=== PATIENT | female | born 1945 | race Caucasian/White ===

== ENCOUNTER → 2016-12-31 | Outpatient (CLI) | payer MEDICARE, OTHER ==
--- NOTE | 2017-01-02 13:06 | MM ---
Reason for exam: screening (asymptomatic). Last mammogram was performed 1 year and 1 month ago. History: Patient is postmenopausal and history of other cancer. Family history of breast cancer in maternal aunt at age 83 and breast cancer in paternal aunt at age 70. Benign US RT VAD breast biopsy of the right breast, November 13, 2012. Excisional biopsy of the left breast. 2 excisional biopsies of the right breast. Took estrogen for 8 years. Physical Findings: A clinical breast exam by your physician is recommended on an annual basis and results should be correlated with mammographic findings. MG 3D Screening Mammo W/Cad Bilateral CC and MLO view(s) were taken. Prior study comparison: December 08, 2015, bilateral MG 3d screening mammo w/cad. August 29, 2014, bilateral MG diagnostic mammo w CAD FILIPPO. The breast tissue is heterogeneously dense. This may lower the sensitivity of mammography. Previous mammotome biopsy in the right breast. No significant changes when compared with prior studies. ASSESSMENT: Benign, BI-RAD 2 RECOMMENDATION: Routine screening mammogram of both breasts in 1 year.
== END | disposition home or self-care (01) ==
LOC: RADMAMWWP 10:47
PROVIDERS: ATTEND Internal Medicine
DX: Z12.31 Encounter for screening mammogram for malignant neoplasm of breast (principal)
CPT/HCPCS: 77063; G0202

== ENCOUNTER 2017-10-26 19:45 | Emergency (ER) | payer MEDICARE, OTHER ==
--- NOTE | 2017-10-26 20:11 | ED ---
General Adult HPI - General Chief complaint: Extremity Problem,Nontraumatic Stated complaint: Leg Pain Time Seen by Provider: 10/26/17 20:02 Source: patient, RN notes reviewed Mode of arrival: ambulatory Limitations: no limitations - History of Present Illness Initial comments: 72-year-old female presents for a bruise to the left leg. Patient states that this developed on Friday. She states she's been having some pain and cramping like to the left leg when she wakes up. She states there is no falls traumas or injuries. She denies any use of blood thinners. She states that she does have some pain to the knee but that has just been this cramping pain. She was concerned due to the continued discomfort so she thought that she should be seen. Patient denies any recent fever, chills, shortness of breath, chest pain, back pain, abdominal pain, nausea vomiting, numbness or tingling, dysuria or hematuria, constipation or diarrhea, headaches or visual changes, or any other current symptoms. - Related Data Home Medications Medication Instructions Recorded Confirmed Allopurinol [Zyloprim] 100 mg PO HS 03/15/16 10/26/17 Aspirin [Adult Low Dose Aspirin EC] 81 mg PO HS 03/15/16 10/26/17 Atorvastatin [Lipitor] 40 mg PO HS 03/15/16 10/26/17 Canagliflozin [Invokana] 100 mg PO DAILY 03/15/16 10/26/17 Celecoxib [CeleBREX] 200 mg PO Q48H 03/15/16 10/26/17 Insulin Glargine,Hum.rec.anlog 24 units SQ HS 03/15/16 10/26/17 [Toujeo Solostar] Levothyroxine Sodium [Synthroid] 125 mcg PO MOTUWETHFRSA 03/15/16 10/26/17 Metoprolol Succinate [Toprol XL] 50 mg PO HS 03/15/16 10/26/17 PARoxetine HCL [Paxil] 20 mg PO DAILY 03/15/16 10/26/17 amLODIPine BESYLATE [Norvasc] 5 mg PO HS 03/15/16 10/26/17 metFORMIN HCL 1,000 mg PO AC-LUNCH 03/15/16 10/26/17 metFORMIN HCL 1,000 mg PO AC-SUPPER 03/15/16 10/26/17 Ferrous Sulfate [Feosol] 325 mg PO DAILY 10/26/17 10/26/17 Levothyroxine Sodium [Synthroid] 62.5 mcg PO CHÁVEZ 10/26/17 10/26/17 Losartan Potassium [Cozaar] 100 mg PO DAILY 10/26/17 10/26/17 Allergies Allergy/AdvReac Type Severity Reaction Status Date / Time codeine AdvReac Nausea Verified 10/26/17 20:17 Review of Systems ROS Statement: Those systems with pertinent positive or pertinent negative responses have been documented in the HPI. ROS Other: All systems not noted in ROS Statement are negative. Past Medical History Past Medical History: Asthma, Chest Pain / Angina, Diabetes Mellitus, GERD/ Reflux, Hyperlipidemia, Hypertension, Osteoarthritis (OA), Thyroid Disorder Additional Past Medical History / Comment(s): slight heart murmer, hx graves disease, hx thyroid cancer, hx skin cancer History of Any Multi-Drug Resistant Organisms: None Reported Past Surgical History: Appendectomy, Bladder Surgery, Breast Surgery, Section, Cholecystectomy, Joint Replacement Additional Past Surgical History / Comment(s): thyroidectomy, susie lumpectomy (rt -4,left-1), rt cataract. right knee replacement. Past Anesthesia/Blood Transfusion Reactions: Blood Transfusion Reaction Additional Past Anesthesia/Blood Transfusion Reaction / Comment(s): blood transfusion-got "Jumpy" and jaundice-1971, Past Psychological History: No Psychological Hx Reported Smoking Status: Former smoker - Past Family History Sister(s) Family Medical History: Pulmonary Embolus General Exam - General Exam Comments Initial Comments: General: The patient is awake and alert, in no distress, and does not appear acutely ill. Neck: The neck is supple, there is no tenderness. Cardiovascular: There is a regular rate and rhythm. No murmur, rub or gallop is appreciated. Respiratory: Lungs are clear to auscultation, respirations are non-labored, breath sounds are equal. No wheezes, stridor, rales, or rhonchi. Musculoskeletal: Sensation intact with 2+ pulses throughout the left flexion. Full range of motion of left knee and left ankle. Patient does appear to have ecchymosis to the medial aspect of the left knee and distal upper leg. There is tenderness along the medial palpation of the leg. No calf tenderness. Neurological: CN II-XII intact, There are no obvious motor or sensory deficits. Coordination appears grossly intact. Speech is normal. Skin: Skin is warm and dry and no rashes or lesions are noted. Psychiatric: Normal mood and affect. Limitations: no limitations Course Vital Signs 10/26/17 19:52 Temperature 97.4 F L Pulse Rate 64 Respiratory 16 Rate Blood Pressure 192/88 O2 Sat by Pulse 96 Oximetry Procedures - Orthopedic Splinting/Casting Injury #1 Side: left Lower Extremity Injury Location: knee Lower Extremity Immobilizer: Flavio wrap Medical Decision Making - Medical Decision Making 72-year-old female presents for left leg pain and bruising. At this time the patient's ultrasound and x-rays have been reviewed. At this time we discussed it appears that the patient most likely has a hematoma. There is no warmth is no red there is no gas in just appears to be complex fluid. This time there is no suspicion for infection there is no fever. At this time we did discuss that we will Flavio bandage the area we discussed usp for the area we discussed close follow-up and return parameters all questions. Patient stated that she understood and she is agreement this plan. All questions have she will be discharged. - Radiology Data Radiology results: report reviewed, image reviewed Disposition Clinical Impression: Hematoma of left lower extremity Disposition: HOME SELF-CARE Condition: Stable Instructions: Hematoma (ED) Additional Instructions: Please use medication as discussed. Please follow up with family doctor if symptoms have not improved over the next two days. Please return to the emergency room if your symptoms increase or worsen or for any other concerns. Referrals: Anshul Montanez MD [Primary Care Provider] - 1-2 days Time of Disposition: 22:16
--- NOTE | 2017-10-26 20:53 | XR ---
EXAMINATION TYPE: XR knee complete LT DATE OF EXAM: 10/26/2017 COMPARISON: NONE HISTORY: Pain and bruising TECHNIQUE: 3 views FINDINGS: I see no fracture nor dislocation. There is narrowing of the medial joint space with spurri ng of the femoral and tibial condyles. There is no sign of joint effusion. IMPRESSION: Osteoarthritis. No fracture.
--- NOTE | 2017-10-26 22:05 | US ---
EXAMINATION TYPE: US venous doppler duplex LE LT DATE OF EXAM: 10/26/2017 8:09 PM COMPARISON: NONE CLINICAL HISTORY: Pain in left thigh intermittent times 3 months. But had an episode of worse pain an d bruising of mid to low thigh wrapping to posterior knee. No known injury, negative PMHX of DVT. SIDE PERFORMED: Left TECHNIQUE: The lower extremity deep venous system is examined utilizing real time linear array sonog kishore with graded compression, doppler sonography and color-flow sonography. VESSELS IMAGED: External Iliac Vein (EIV) Common Femoral Vein Deep Femoral Vein Greater Saphenous Vein * Femoral Vein Popliteal Vein Small Saphenous Vein * Proximal Calf Veins (* superficial vessels) Left Leg: Negative for DVT Incidental hypoechoic complex area superior to FV mid that does not appear to have any internal flow; likely hematoma versus other etiology. IMPRESSION: No evidence of deep venous thrombosis in the left leg. There is a 6 x 1.4 cm complex area in the left upper thigh that appears to be complex fluid of uncertain significance and origin.
[2017-10-26 22:18] VITALS: BP 144/67; PULSE 77; RESP 18; TEMP 97
== END 2017-10-26 22:20 | disposition home or self-care (01) ==
LOC: EC 19:45
DX: R29.898 Other symptoms and signs involving the musculoskeletal system (principal); E11.9 Type 2 diabetes mellitus without complications; E78.5 Hyperlipidemia, unspecified; I10 Essential (primary) hypertension; E07.9 Disorder of thyroid, unspecified; Z85.850 Personal history of malignant neoplasm of thyroid; Z87.891 Personal history of nicotine dependence; Z79.4 Long term (current) use of insulin; Z79.82 Long term (current) use of aspirin; Z79.899 Other long term (current) drug therapy; Z88.5 Allergy status to narcotic agent
CPT/HCPCS: 99284

== ENCOUNTER → 2017-12-19 | Outpatient (CLI) | payer MEDICARE, OTHER ==
--- NOTE | 2017-12-20 12:01 | CT ---
EXAMINATION TYPE: CT abdomen pelvis wo con DATE OF EXAM: 12/19/2017 COMPARISON: NONE HISTORY: Hematuria x 2 weeks. Right flank pain. CT DLP: 1013 mGycm Automated exposure control for dose reduction was used. TECHNIQUE: Helical acquisition of images from the lung bases through the pelvis. FINDINGS: The heart is enlarged. Lack of contrast could compromise sensitivity. LUNG BASES: No significant abnormality is appreciated. AORTA: Atheromatous change present within the aorta, there is no evident aneurysm LIVER/GB: Patient is post cholecystectomy, liver unremarkable as seen. PANCREAS: No significant abnormality is seen. SPLEEN: No significant abnormality is seen. ADRENALS: No significant abnormality is seen. KIDNEYS: 15 mm low dense focus at the lower pole of the right kidney shows Hounsfield units compatibl e with cyst. Low dense focus of the midpole of the left kidney is not well-defined and measures appro ximately 7 to 8 mm and also shows low attenuation, similar focus in the medial aspect of the lower po le of the right kidney measures 9 mm. There is no hydronephrosis or renal calculus bilaterally, no ur eteral calculus. Small exophytic 8 mm indeterminate focus is present in the anterior aspect of the up per pole of the left kidney. REPRODUCTIVE ORGANS: Ovarian tissue unremarkable, uterus is absent URINARY BLADDER: Some mild thickening of the urinary bladder wall could be due to lack of distention , correlate to exclude cystitis BOWEL: Diverticular change noted especially in the sigmoid colon, no evident bowel obstruction FREE AIR: No Free Air is visible. ASCITES: None visible. PELVIC ADENOPATHY: None visualized. RETROPERITONEAL ADENOPATHY: No Retroperitoneal Adenopathy visible. OSSEOUS STRUCTURES: There is a mild spinal curvature, degenerative disc changes are noted in the vis ualized spine. Vacuum phenomenon present at multiple intervertebral levels, there is loss of disc he ight, mild anterior wedging present at T12. Posterior disc herniation present at L5-S1, there is gas density within the spinal canal, there is multilevel facet arthropathy. IMPRESSION: NONCONTRAST EXAM. PROBABLE CYSTS ASSOCIATED WITH THE KIDNEYS, CONSIDER ULTRASOUND CORRELATION, FOLLOW -UP TO ASSESS FOR STABILITY. DIVERTICULOSIS. POSTOP CHANGES. CORRELATE TO EXCLUDE CYSTITIS. DISC KALPESH IATION, DEGENERATIVE DISC DISEASE AND SCOLIOSIS. ADDITIONAL FINDINGS ABOVE.
== END | disposition home or self-care (01) ==
LOC: RADCTMAIN 18:27
PROVIDERS: ATTEND Internal Medicine
DX: N28.1 Cyst of kidney, acquired (principal); K57.90 Diverticulosis of intestine, part unspecified, without perforation or abscess without bleeding; Z98.890 Other specified postprocedural states
CPT/HCPCS: 74176

== ENCOUNTER → 2017-12-30 | Outpatient (CLI) | payer MEDICARE, OTHER ==
--- NOTE | 2017-12-30 14:58 | US ---
EXAMINATION TYPE: US kidneys/renal and bladder DATE OF EXAM: 12/30/2017 COMPARISON: April 29, 2011 CLINICAL HISTORY: Acquired renal cyst N28.1`. Renal cysts per CT. Patient states she had pain, but n ot any more. EXAM MEASUREMENTS: Right Kidney: 9.8 x 4.4 x 4.4 cm cm Left Kidney: 10.1 x 4.8 x 5.7 cm Right Kidney: Lower pole cystic appearing lesion - 1.3 x 1.3 x 1.2 cm Left Kidney: Anterior mid pole cystic appearing lesion - 0.8 x 0.5 x 0.6 cm Bladder: distended, wnl Bilateral Jets seen There is no evidence for hydronephrosis at this point in time. No nephrolithiasis is seen. No maureen s are identified. The urinary bladder is anechoic. Bilateral ureteral jets are seen. IMPRESSION: Solid 1. Bilateral simple appearing renal cysts.
== END | disposition home or self-care (01) ==
LOC: RADUSWWP 13:30
PROVIDERS: ATTEND Internal Medicine
DX: N28.1 Cyst of kidney, acquired (principal)
CPT/HCPCS: 76770

== ENCOUNTER → 2018-02-16 | Outpatient (CLI) | payer MEDICARE, OTHER ==
--- NOTE | 2018-02-17 10:12 | MM ---
Reason for exam: screening (asymptomatic). Last mammogram was performed 1 year and 2 months ago. History: Patient is postmenopausal and history of other cancer. Family history of breast cancer in maternal aunt at age 83 and breast cancer in paternal aunt at age 70. Benign US RT VAD breast biopsy of the right breast, November 13, 2012. Excisional biopsy of the left breast. 2 excisional biopsies of the right breast. Took estrogen for 8 years. Physical Findings: A clinical breast exam by your physician is recommended on an annual basis and results should be correlated with mammographic findings. MG 3D Screening Mammo W/Cad Bilateral CC and MLO view(s) were taken. Prior study comparison: December 31, 2016, bilateral MG 3d screening mammo w/cad. December 08, 2015, bilateral MG 3d screening mammo w/cad. The breast tissue is heterogeneously dense. This may lower the sensitivity of mammography. Benign appearing bilateral calcifications. Previous mammotome biopsy in the right breast. There is chronic nodularity bilaterally. No significant changes when compared with prior studies. ASSESSMENT: Benign, BI-RAD 2 RECOMMENDATION: Routine screening mammogram of both breasts in 1 year.
--- NOTE | 2018-02-18 13:12 | BD ---
EXAMINATION TYPE: Axial Bone Density DATE OF EXAM: 02/16/2018 COMPARISON: 2016 CLINICAL HISTORY: known osteoporosis Height: 59 Weight: 183.7 FRAX RISK QUESTIONS: History of Fracture in Adulthood: left shoulder fx RISK FACTORS HISTORY OF: Active: yes Diet low in dairy products/other sources of calcium: no Postmenopausal woman: yes MEDICATIONS: Thyroid Medications: Which medication: Levothyroxine How Lon Additional Medications: htn, arthritis, cholesterol, diabetes/insulin and metformin, pain Additional History: thyroid cancer in 1987 with radiation EXAM MEASUREMENTS: Bone mineral densitometry was performed using the Zuli System. Bone mineral density as measured about the Lumbar spine is: ----- L1-L4(G/cm2): 1.382 T Score Values are as follows: ----- L2: 0.3 ----- L3: 1.5 ----- L4: 3.1 ----- L1-L4: 1.7 Bone mineral density has: Decreased -5.3% since study of: 12-08-2015 Bone mineral density about the R hip (g/cm2): 0.949 Bone mineral density about the L hip (g/cm2): 0.960 T Score values are as follows: -----R Neck: -0.6 -----L Neck: -0.6 -----R Total: -0.2 -----L Total: 0.2 Bone mineral density has: Decreased -2.0% since study of: 12-08-2015 IMPRESSION: Normal (Values between +1 and -1 indicate normal bone mass). Consider repeating this study in 5 year s or sooner if there is some new clinical indication. NOTE: T-SCORE=SD OF THE YOUNG ADULT MEAN.
== END | disposition home or self-care (01) ==
LOC: RADMAMWWP 11:15
PROVIDERS: ATTEND Internal Medicine
DX: Z12.31 Encounter for screening mammogram for malignant neoplasm of breast (principal); M81.0 Age-related osteoporosis without current pathological fracture
CPT/HCPCS: 77063; 77067; 77080

== ENCOUNTER → 2019-04-08 | Outpatient (CLI) | payer MEDICARE ==
--- NOTE | 2019-04-09 07:19 | US ---
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 No hx of tia, HTN EXAM MEASUREMENTS: RIGHT: Peak Systolic Velocity (PSV) cm/sec ----- Right CCA: 48.2 ----- Right ICA: 91.5 ----- Right ECA: 94.1 ICA/CCA ratio: 1.9 RIGHT: End Diastole cm/sec ----- Right CCA: 9.7 ----- Right ICA: 17.6 ----- Right ECA: 8.6 LEFT: Peak Systolic Velocity (PSV) cm/sec ----- Left CCA: 48.8 ----- Left ICA: 77.0 ----- Left ECA: 90.6 ICA/CCA ratio: 1.6 LEFT: End Diastole cm/sec ----- Left CCA: 8.6 ----- Left ICA: 18.6 ----- Left ECA: 3.8 VERTEBRALS (direction of flow): Right Vertebral: Antegrade Left Vertebral: Antegrade Rhythm: Arrhythmia Suboptimal exam due to arrhythmia and carotid pulsatility Bilateral wall thickening. No significant stenosis. Plaque seen in bilateral bulbs and right anteri or CCA. IMPRESSION: 1. Mild degree of grayscale atheromatous plaquing with no sonographically evident hemodynamically sig nificant stenosis within either visualized carotid arterial system. 2. Cardiac arrhythmia. Correlate with EKG. Criteria for Assigning % of Stenosis / Diameter reduction (Estimation based on the indirect measurements of the internal carotid artery velocities (ICA PSV). 1. Normal (no stenosis)=ICA PSV < 125 cm/s: ratio < 2.0: ICA EDV<40 cm/s. 2. Less than 50% stenosis=ICA PSV < 125 cm/s: ratio < 2.0: ICA EDV<40 cm/s. 3. 50 to 69% stenosis=ICA PSV of 125 to 230 cm/s: ration 2.0 ? 4.0: ICA EDV 40-100 cm/s. 4. Greater than 70% stenosis to near occlusion= ICA PSV > 230 cm/s: ratio > 4.0: ICA EDV > 100 cm/s. 5. Near occlusion= ICA PSV velocities may be low or undetectable: variable ratio and ICA EDV. 6. Total occlusion=unable to detect flow.
--- NOTE | 2019-04-09 10:54 | ECHOF ---
Referral Reason:I34.0 Nonrheumatic mitral (valve) insufficiency MEASUREMENTS -------- HEIGHT: 152.4 cm WEIGHT: 81.6 kg BP: RVIDd: 2.6 cm (< 3.3) IVSd: 1.3 cm (0.6 - 1.1) LVIDd: 4.0 cm (3.9 - 5.3) LVPWd: 1.4 cm (0.6 - 1.1) IVSs: 1.7 cm LVIDs: 2.5 cm LVPWs: 1.4 cm LA Diam: 3.7 cm (2.7 - 3.8) Ao Diam: 2.5 cm (2.0 - 3.7) AV Cusp: 1.7 cm (1.5 - 2.6) LA Diam: 3.8 cm (2.7 - 3.8) MV EXCURSION: 17.354 mm (> 18.000) MV EF SLOPE: 57 mm/s (70 - 150) EPSS: 0.5 cm MV E Tomas: 0.53 m/s MV DecT: 321 ms MV A Tomas: 0.94 m/s MV E/A Ratio: 0.57 RAP: 5.00 mmHg RVSP: 12.26 mmHg FINDINGS -------- Sinus rhythm. This was a technically adequate study. The left ventricular size is normal. There is mild concentric left ventricular hypertrophy. Overa ll left ventricular systolic function is normal with, an EF between 55 - 60 %. The right ventricle is normal in size. The left atrial size is normal. The right atrial size is normal. The aortic valve is trileaflet, and appears structurally normal. No aortic stenosis or regurgitation. Mild mitral regurgitation is present. Mild tricuspid regurgitation present. There is no evidence of pulmonary hypertension. The right v entricular systolic pressure, as measured by Doppler, is 12.26mmHg. There is no pulmonic regurgitation present. The aortic root size is normal. Echo free space represents a pericardial fat pad. CONCLUSIONS -------- 1. The left ventricular size is normal. 2. There is mild concentric left ventricular hypertrophy. 3. Overall left ventricular systolic function is normal with, an EF between 55 - 60 %. 4. The right ventricle is normal in size. 5. The left atrial size is normal. 6. The right atrial size is normal. 7. The aortic valve is trileaflet, and appears structurally normal. No aortic stenosis or regurgitati on. 8. Mild mitral regurgitation is present. 9. Mild tricuspid regurgitation present. 10. There is no evidence of pulmonary hypertension. 11. The right ventricular systolic pressure, as measured by Doppler, is 12.26mmHg. 12. There is no pulmonic regurgitation present. 13. The aortic root size is normal. 14. Echo free space represents a pericardial fat pad. [employer]HEL WORKER: Ramila Acevedo RDCS
== END | disposition home or self-care (01) ==
LOC: RADECHMAIN 14:41
PROVIDERS: ATTEND Internal Medicine
DX: I65.23 Occlusion and stenosis of bilateral carotid arteries (principal); I08.1 Rheumatic disorders of both mitral and tricuspid valves; I77.89 Other specified disorders of arteries and arterioles
CPT/HCPCS: 93306; 93880

== ENCOUNTER → 2019-04-13 | Outpatient (CLI) | payer MEDICARE, OTHER ==
--- NOTE | 2019-04-14 11:50 | MM ---
Reason for exam: screening (asymptomatic). Last mammogram was performed 1 year and 2 months ago. History: Patient is postmenopausal and history of other cancer. Family history of breast cancer in maternal aunt at age 83 and breast cancer in paternal aunt at age 70. Benign US RT VAD breast biopsy of the right breast, November 13, 2012. Excisional biopsy of the left breast. 2 excisional biopsies of the right breast. Took estrogen for 8 years. Physical Findings: A clinical breast exam by your physician is recommended on an annual basis and results should be correlated with mammographic findings. MG 3D Screening Mammo W/Cad Bilateral CC and MLO view(s) were taken. Prior study comparison: February 16, 2018, bilateral MG 3d screening mammo w/cad. December 31, 2016, bilateral MG 3d screening mammo w/cad. The breast tissue is heterogeneously dense. This may lower the sensitivity of mammography. There are benign appearing stable right upper outer quadrant and right lower inner quadrant masses at middle depth as well as stable two left upper outer quadrant masses at anterior and middle depth all back to 2013. Benign appearing bilateral calcifications. No suspicious abnormality. Right biopsy marker noted. No significant changes when compared with prior studies. ASSESSMENT: Benign, BI-RAD 2 RECOMMENDATION: Routine screening mammogram of both breasts in 1 year.
== END | disposition home or self-care (01) ==
LOC: RADMAMWWP 09:56
PROVIDERS: ATTEND Internal Medicine
DX: Z12.31 Encounter for screening mammogram for malignant neoplasm of breast (principal)
CPT/HCPCS: 77063; 77067

== ENCOUNTER → 2019-09-09 | Outpatient (CLI) | payer MEDICARE ==
--- NOTE | 2019-09-09 12:58 | XR ---
EXAMINATION TYPE: XR lumbosacral spine min 4V DATE OF EXAM: 09/09/2019 CLINICAL HISTORY: M 47.897 TECHNIQUE: Frontal, lateral, and oblique images of the lumbar spine are obtained. COMPARISON: 07/16/2013 lumbar spine x-ray and CT abdomen pelvis dated 12/19/2017. FINDINGS: There are 5 lumbar type vertebral bodies identified. The lumbar spine shows satisfactory alignment without evidence of acute fracture or dislocation. However there is a compression deformity of the T12 vertebral body with height loss of approximately 50%. Multilevel facet arthropathy, inter vertebral disc space narrowing, and anterior osteophytes are seen in the lumbar spine. Extensive athe rosclerosis of the abdominal aorta and its branches. Single surgical clip in the right upper quadrant . S-shaped scoliosis of the thoracic lumbar spine is partially visualized. IMPRESSION: 1. T12 compression deformity is new from the prior of 07/16/2013 but seen on the CT of 12/19/2017. 2. No acute fracture or malalignment of the lumbar spine. 3. Partially visualized S-shaped scoliosis of the thoracolumbar spine. 4. Moderate degenerative disc disease of the lumbar spine.
== END | disposition home or self-care (01) ==
LOC: LABWHC1 11:43
PROVIDERS: ATTEND Internal Medicine
DX: M51.36 Other intervertebral disc degeneration, lumbar region (principal); M41.87 Other forms of scoliosis, lumbosacral region
CPT/HCPCS: 72110

== ENCOUNTER → 2019-09-15 | Outpatient (CLI) | payer MEDICARE ==
--- NOTE | 2019-09-15 22:31 | MR ---
EXAMINATION TYPE: MR lumbar spine wo con DATE OF EXAM: 09/15/2019 COMPARISON: NONE HISTORY: Lower back pain for years. No known injury or surgeries. TECHNIQUE: T1 and T2 axial and sagittal images of the lumbar spine are submitted. FINDINGS: There is no abnormal signal seen within the visualized spinal cord or paraspinal soft tissu es. There is atrophy of the paraspinal musculature. Aorta of normal caliber. Benign-appearing renal c ysts noted. Scoliosis noted. At T12-L1 there is loss of height at the superior endplate compatible with a chronic compression defo rmity. Moderate degenerative disc disease with facet arthropathy. There is diffuse disc bulging but n o canal stenosis. Bulging slightly greater paracentrally and laterally to left with mild bilateral fo raminal encroachment. At L1-2 there is degenerative disc disease with diffuse disc bulging and facet arthropathy. Marked ch anges are seen in the left resulting in moderate left-sided foraminal enlargement. Mild right-sided f oraminal encroachment. At L2-3 there is moderate degenerative disc disease with advanced facet arthropathy and ligamentum fl avum. Diffuse disc bulging results in moderate to severe canal stenosis and bilateral foraminal encro achment. At L3-4 there is degenerative disc disease with broad-based disc bulging or protrusion. Marked facet arthropathy and ligamentum flavum hypertrophy contribute to moderate to severe canal stenosis and susie ateral foraminal encroachment. At L4-5 there is severe degenerative disc disease with advanced facet arthropathy and ligamentum flav um hypertrophy. Broad-based disc bulging results in moderate canal stenosis and left foraminal encroa chment. Severe right-sided foraminal encroachment greater secondary to greater disc bulging paracentr ally and laterally to the right. Mass effect upon the right nerve root suspected correlate for radicu lopathy. At L5-S1 there is severe degenerative disc disease with a focal central and left paracentral disc her niation fusion of the disc posterior to the upper margin of the S1 level. There is compression of the thecal sac and left exiting nerve root. Facet arthropathy noted. IMPRESSION: 1. Scoliosis with multilevel moderate to severe degenerative disc disease. 2. Focal central and left paracentral disc herniation L5-S1 with extrusion. Disc material extends ankita ng the posterior margin of the upper S1 level. There is compression of the thecal sac and suspicion o f mass effect upon the exiting left nerve root. 3. Diffuse disc bulging or protrusions L2-3, L3-4 and L4-5 with significant foraminal encroachment an d significant canal stenosis as discussed above. 4. Disc bulging T12-L1 and L1-L2 resulting in foraminal encroachment as discussed above.
== END | disposition home or self-care (01) ==
LOC: RADMRIMAIN 17:44
PROVIDERS: ATTEND Internal Medicine
DX: M48.061 Spinal stenosis, lumbar region without neurogenic claudication (principal); M51.25 Other intervertebral disc displacement, thoracolumbar region; M51.26 Other intervertebral disc displacement, lumbar region; M51.27 Other intervertebral disc displacement, lumbosacral region; M51.36 Other intervertebral disc degeneration, lumbar region; M51.37 Other intervertebral disc degeneration, lumbosacral region; M41.86 Other forms of scoliosis, lumbar region; M53.87 Other specified dorsopathies, lumbosacral region
CPT/HCPCS: 72148

== ENCOUNTER → 2020-05-18 | Outpatient (CLI) | payer MEDICARE ==
--- NOTE | 2020-05-19 11:03 | MM ---
Reason for exam: screening (asymptomatic). Last mammogram was performed 1 year and 1 month ago. History: Patient is postmenopausal and history of other cancer. Family history of breast cancer in maternal aunt at age 83 and breast cancer in paternal aunt at age 70. Benign US RT VAD breast biopsy of the right breast, November 13, 2012. Excisional biopsy of the left breast. 2 excisional biopsies of the right breast. Took estrogen for 8 years. Physical Findings: A clinical breast exam by your physician is recommended on an annual basis and results should be correlated with mammographic findings. MG 3D Screening Mammo W/Cad Bilateral CC and MLO view(s) were taken. Prior study comparison: April 13, 2019, bilateral MG 3d screening mammo w/cad. February 16, 2018, bilateral MG 3d screening mammo w/cad. There are scattered fibroglandular densities. No significant changes when compared with prior studies. ASSESSMENT: Benign, BI-RAD 2 RECOMMENDATION: Routine screening mammogram of both breasts in 1 year.
== END | disposition home or self-care (01) ==
LOC: RADMAMWWP 14:50
PROVIDERS: ATTEND Internal Medicine
DX: Z12.31 Encounter for screening mammogram for malignant neoplasm of breast (principal)
CPT/HCPCS: 77063; 77067

== ENCOUNTER → 2020-06-16 | Outpatient (CLI) | payer MEDICARE | END | disposition home or self-care (01) | LOC: LABWHC1 13:29 | PROVIDERS: ATTEND Internal Medicine | DX: Z20.828 Contact with and (suspected) exposure to other viral communicable diseases (principal) | CPT/HCPCS: U0003; C9803 ==

== ENCOUNTER → 2021-10-02 | Outpatient (CLI) | payer MEDICARE ==
--- NOTE | 2021-10-02 17:52 | MR ---
EXAMINATION TYPE: MR lumbar spine wo con DATE OF EXAM: 10/02/2021 COMPARISON: 09/15/2019 HISTORY: 76-year-old female low back pain for years, M47.816, spondylosis of lumbar spine. TECHNIQUE: Multiplanar, multisequence images of the lumbar spine were acquired without IV contrast. FINDINGS: Gentle reverse S shaped curvature lower thoracic and lumbar spine. Mild heterogeneous marrow signal without suspicious bone marrow placement. Mild superior endplate def ormity of T12 is unchanged and chronic. Vertebral body heights otherwise preserved. Preserved alignment of the lumbar spine. Severe hypertrophic facet arthropathy throughout. Moderate multilevel discogenic degenerative change with desiccated and bulging disks throughout. Mode rate to severe loss of disc space towards the right at L4-L5 with some associated Modic type II fatty endplate change. There is also ligamentum flavum thickening throughout. Prominent dorsal epidural fat. There also a co mponent of congenital spinal canal stenosis plate AP canal dimension throughout the lumbar spine to 1 cm. Conus medullaris is normally located. Renal cortical cysts measuring up to 2.1 cm right. At T12-L1, there is diffuse disc bulge impressing on the ventral thecal sac. Facet arthropathy toward s the left. No significant canal stenosis. Mild left neural foraminal stenosis. At L1-L2, diffuse disc bulge with ligamentum flavum thickening and prominent dorsal epidural fat as w ell as a mild congenital spinal canal narrowing. Overall mild narrowing of the thecal sac and moderat e left neuroforaminal stenosis. At L2-L3, diffuse disc bulge with congenital canal stenosis, ligamentum flavum thickening, prominent dorsal epidural fat, and hypertrophic facet arthropathy. There is severe focal spinal canal stenosis with effacement of the CSF signal here. Worsened compared to 09/15/2019. Also, moderate bilateral neura l foraminal stenosis. At L3-L4, similar changes contributing to a focal severe spinal canal stenosis, worsened from prior e xam. Moderate right neuroforaminal stenosis. At L4-L5, diffuse disc bulge with hypertrophic facet arthropathy, ligamentum flavum thickening, and c ongenital spinal canal stenosis. Mild overall spinal canal stenosis. There is disc osteophyte complex and facet arthropathy contributing to right lateral recess stenosis. Moderate right neuroforaminal s tenosis. Right-sided disc osteophyte complex may impinge the extraforaminal right L4 nerve root at th is level. Mild left neural foraminal stenosis. At L5-S1, diffuse disc bulge with hypertrophic facet arthropathy. No significant spinal canal stenosi s. Moderate to severe left neuroforaminal stenosis possibly with impingement of the exiting left L5 n erve root. Mild right neural foraminal stenosis. No prevertebral or paravertebral soft tissue abnormality. IMPRESSION: 1. Gentle reverse S-shaped scoliotic curvature lower thoracic and lumbar spine. 2. Moderate multilevel degenerative disc disease. There is also severe hypertrophic facet arthropathy , ligamentum flavum thickening, and prominent dorsal epidural fat, all superimposed on a mild congeni alexander spinal canal stenosis. 3. All of these changes result in an overall severe spinal canal stenosis at L2-L3 and L3-L4, slightl y increased from prior exam. Mild overall spinal canal narrowing L1-L2 and L4-L5. 4. Variable moderate neuroforaminal stenoses as outlined above. Moderate to severe on the left at L5- S1. 5. Additionally, there is right lateral recess stenosis at L4-L5. Right-sided disc osteophyte complex at this level may also impinge the extraforaminal right L4 nerve root.
== END | disposition home or self-care (01) ==
LOC: RADMRIMAIN 10:17
PROVIDERS: ATTEND Internal Medicine
DX: M47.816 Spondylosis without myelopathy or radiculopathy, lumbar region (principal); M51.27 Other intervertebral disc displacement, lumbosacral region; M48.061 Spinal stenosis, lumbar region without neurogenic claudication; M41.85 Other forms of scoliosis, thoracolumbar region; M99.73 Connective tissue and disc stenosis of intervertebral foramina of lumbar region
CPT/HCPCS: 72148

== ENCOUNTER → 2021-10-16 | Outpatient (CLI) | payer MEDICARE ==
--- NOTE | 2021-10-17 09:00 | MM ---
Reason for exam: screening (asymptomatic). Last mammogram was performed 1 year and 5 months ago. History: Patient is postmenopausal and history of other cancer. Family history of breast cancer in maternal aunt at age 83 and breast cancer in paternal aunt at age 70. Benign US RT VAD breast biopsy of the right breast, November 13, 2012. Excisional biopsy of the left breast. 2 excisional biopsies of the right breast. Took estrogen for 8 years. Physical Findings: A clinical breast exam by your physician is recommended on an annual basis and results should be correlated with mammographic findings. MG 3D Screening Mammo W/Cad Bilateral CC and MLO view(s) were taken. Prior study comparison: May 18, 2020, bilateral MG 3d screening mammo w/cad. April 13, 2019, bilateral MG 3d screening mammo w/cad. The breast tissue is heterogeneously dense. This may lower the sensitivity of mammography. Stable benign calcifications. There is no discrete abnormality. No significant changes when compared with prior studies. ASSESSMENT: Benign, BI-RAD 2 RECOMMENDATION: Routine screening mammogram of both breasts in 1 year.
== END | disposition home or self-care (01) ==
LOC: RADMAMWWP 09:57
PROVIDERS: ATTEND Internal Medicine
DX: Z12.31 Encounter for screening mammogram for malignant neoplasm of breast (principal); Z78.0 Asymptomatic menopausal state; Z80.3 Family history of malignant neoplasm of breast
CPT/HCPCS: 77063; 77067

== ENCOUNTER → 2022-01-09 | Outpatient (CLI) | payer MEDICARE ==
--- NOTE | 2022-01-09 22:45 | BD ---
EXAMINATION TYPE: Axial Bone Density DATE OF EXAM: 01/09/2022 COMPARISON: 2017 CLINICAL HISTORY: 76 years year old Female. ICD-10 CODE: M81.0 AGE RELATED OSTEOPOROSIS Height: 4'10 Weight: 178 FRAX RISK QUESTIONS: History of Fracture in Adulthood: Y Secondary Osteoporosis: 3. Menopause before 45: y RISK FACTORS HISTORY OF: Diet low in dairy products/other sources of calcium: y Postmenopausal woman: y MEDICATIONS: Thyroid Medications: Which medication: Levothyroxine How Lon years Additional Medications: blood pressure, Metformin, diabetes 2, gout Additional History: thyroidectomy cancer, 1987, EXAM MEASUREMENTS: Bone mineral densitometry was performed using the [employer] System. Bone mineral density as measured about the Lumbar spine is: ----- L1-L4(G/cm2): 1.376 T Score Values are as follows: ----- L1: 0.5 ----- L2: 0.5 ----- L3: 1.8 ----- L4: 3.2 ----- L1-L4: 1.6 Bone mineral density has: Increased 2.4% since study of: 02/16/2018 Bone mineral density about the R hip (g/cm2): 0.887 Bone mineral density about the L hip (g/cm2): 0.908 T Score values are as follows: -----R Neck: -1.1 -----L Neck: -0.9 -----R Total: -0.3 -----L Total: 0.0 Bone mineral density has: Decreased -1.8% since study of: 02/16/2018 FRAX: The graph provided illustrates a 15.4% chance for a major osteoporotic fx and a 2.5% chance for the hips probability for fx in 10 years time. IMPRESSION: Osteopenia (T Score between -2.5 and -1). There is slightly increased risk of fracture and the patient may be considered for treatment. Re-Screen 2-5 years. NOTE: T-SCORE=SD OF THE YOUNG ADULT MEAN.
== END | disposition home or self-care (01) ==
LOC: RADBDWWP 09:21
PROVIDERS: ATTEND Internal Medicine
DX: M85.851 Other specified disorders of bone density and structure, right thigh (principal); Z78.0 Asymptomatic menopausal state
CPT/HCPCS: 77080

== ENCOUNTER 2022-05-07 10:52 | Emergency (ER) | payer MEDICARE ==
[2022-05-07 11:17] LABS: Glucose,Whole Blood 171 mg/dL (70-110)
[2022-05-07 11:19] VITALS: TEMP 97.6
[2022-05-07 12:05] LABS: Appearance,Urine Clear (Clear); Bilirubin,Urine Negative (Negative); Blood,Urine Negative (Negative); Color,Urine Colorless; Glucose,Urine (UA) 4+ (Negative); Ketones,Urine Negative (Negative); Leukocyte Esterase,Urine Negative (Negative); Nitrite,Urine Negative (Negative); Protein,Urine 1+ (Negative); RBC,Urine 1 /hpf (0-5); Squamous Epithelial Cell,Urine <1 /hpf (0-4); Urobilinogen,Urine <2.0 mg/dL (<2.0); WBC,Urine 1 /hpf (0-5)
[2022-05-07] MEDS ORDERED: SODIUM CHLORIDE 0.9% 1,000 ML IV STA (12:16)
[2022-05-07] MEDS ORDERED: KETOROLAC 15 MG/ML 1 ML VIAL IVP STA (12:16)
--- NOTE | 2022-05-07 12:32 | ED ---
General Adult HPI - General Chief complaint: Back Pain/Injury Stated complaint: not feeling well Time Seen by Provider: 05/07/22 12:04 Source: patient, RN notes reviewed, old records reviewed Mode of arrival: ambulatory Limitations: no limitations - History of Present Illness Initial comments: 77-year-old female presenting with 1 week of left flank pain and low back pain radiating into the left buttock. Patient has developed nausea as well as chills. She states she does not feel well she states she thought her blood sugar was low and had taken some glucose tablets. She denies a specific fall or trauma. Denies dysuria but has had urinary frequency and urgency. No extremities into the left leg. - Related Data Home Medications Medication Instructions Recorded Confirmed Aspirin [Adult Low Dose Aspirin EC] 81 mg PO HS 03/15/16 05/07/22 Atorvastatin [Lipitor] 40 mg PO HS 03/15/16 05/07/22 Insulin Glargine,Hum.rec.anlog 24 units SQ HS 03/15/16 05/07/22 [Braulio Tongostjeremy] Levothyroxine Sodium [Synthroid] 125 mcg PO AC-BRKFST 03/15/16 05/07/22 Metoprolol Succinate [Toprol XL] 50 mg PO HS 03/15/16 05/07/22 PARoxetine HCL [Paxil] 20 mg PO DAILY 03/15/16 05/07/22 allopurinoL [Zyloprim] 100 mg PO HS 03/15/16 05/07/22 amLODIPine BESYLATE [Norvasc] 5 mg PO HS 03/15/16 05/07/22 metFORMIN HCL [Glucophage] 1,000 mg PO BID 03/15/16 05/07/22 Losartan Potassium [Cozaar] 100 mg PO DAILY 10/26/17 05/07/22 Albuterol Sulfate [Proair Hfa] 2 puff INHALATION RT-QID PRN 05/07/22 05/07/22 Baclofen 5 mg PO DAILY PRN 05/07/22 05/07/22 Calcium Carbonate [Tums] 1,000 mg PO TID PRN 05/07/22 05/07/22 Empagliflozin [Jardiance] 10 mg PO DIRECTED 05/07/22 05/07/22 Famotidine [Pepcid] 20 mg PO BID PRN 05/07/22 05/07/22 Furosemide [Lasix] 40 mg PO DAILY 05/07/22 05/07/22 Mirabegron [Myrbetriq] 25 mg PO DIRECTED 05/07/22 05/07/22 Previous Rx's Medication Instructions Recorded HYDROcodone/APAP 5-325MG [Midway 1 tab PO Q6HR PRN #12 tab 05/07/22 5-325] dexAMETHasone [Decadron] 6 mg PO DAILY #5 tablet 05/07/22 Allergies Allergy/AdvReac Type Severity Reaction Status Date / Time codeine AdvReac Nausea Verified 05/07/22 13:57 Review of Systems ROS Statement: Those systems with pertinent positive or pertinent negative responses have been documented in the HPI. ROS Other: All systems not noted in ROS Statement are negative. Past Medical History Past Medical History: Asthma, Chest Pain / Angina, Diabetes Mellitus, GERD/Reflux, Hyperlipidemia, Hypertension, Osteoarthritis (OA), Thyroid Disorder Additional Past Medical History / Comment(s): slight heart murmer, hx graves disease, hx thyroid cancer, hx skin cancer History of Any Multi-Drug Resistant Organisms: None Reported Past Surgical History: Appendectomy, Bladder Surgery, Breast Surgery, Section, Cholecystectomy, Joint Replacement Additional Past Surgical History / Comment(s): thyroidectomy, susie lumpectomy (rt-4,left-1), rt cataract. right knee replacement. Past Anesthesia/Blood Transfusion Reactions: Blood Transfusion Reaction Additional Past Anesthesia/Blood Transfusion Reaction / Comment(s): blood transfusion-got "Jumpy" and jaundice-1971, Past Psychological History: No Psychological Hx Reported Smoking Status: Former smoker Past Alcohol Use History: None Reported Past Drug Use History: None Reported - Past Family History Sister(s) Family Medical History: Pulmonary Embolus General Exam Limitations: no limitations General appearance: alert, in no apparent distress Head exam: Present: atraumatic, normocephalic Eye exam: Present: normal appearance, PERRL ENT exam: Present: normal exam Neck exam: Present: normal inspection. Absent: tenderness, meningismus Respiratory exam: Present: normal lung sounds bilaterally. Absent: respiratory distress, wheezes Cardiovascular Exam: Present: regular rate, normal rhythm GI/Abdominal exam: Present: soft. Absent: distended, tenderness, guarding Extremities exam: Present: normal inspection, normal capillary refill Back exam: Present: normal inspection (No rash), CVA tenderness (L), paraspinal tenderness Neurological exam: Present: alert, oriented X3, CN II-XII intact. Absent: motor sensory deficit Psychiatric exam: Present: normal affect, normal mood Skin exam: Present: warm, dry, intact. Absent: cyanosis, diaphoretic Course Vital Signs 05/07/22 05/07/22 05/07/22 11:11 13:16 14:21 Temperature 97.6 F Pulse Rate 58 L 64 63 Respiratory 18 18 15 Rate Blood Pressure 181/79 198/86 152/71 O2 Sat by Pulse 96 90 L 94 L Oximetry 05/07/22 14:51 Temperature Pulse Rate Respiratory Rate Blood Pressure O2 Sat by Pulse 94 L Oximetry Medical Decision Making - Medical Decision Making 77-year-old female with left low back pain, left flank pain. Patient has had symptoms for approximately one week. I did perform workup including laboratory testing and CT imaging. CT imaging shows scoliosis and degenerative changes within the spine, no acute findings in the abdomen. Patient has a mild leukocytosis and a hemoglobin of 16. Chest x-ray negative for focal pneumonia or acute findings, urinalysis no signs of infection, negative coronavirus test ing. I discussed case with Dr. Montanez who is familiar with the patient. At this time we agreed with the patient and her daughter that we will trial steroids and short course of [place]way. She will follow-up with her primary care physician Dr. Montanez. - Lab Data Result diagrams: 05/07/22 12:49 05/07/22 12:49 Lab Results 05/07/22 05/07/22 05/07/22 Range/Units 11:16 11:49 12:49 WBC 11.2 H (3.8-10.6) k/uL RBC 5.52 H (3.80-5.40) m/uL Hgb 16.1 H (11.4-16.0) gm/dL Hct 50.7 H (34.0-46.0) % MCV 91.9 (80.0-100.0) fL MCH 29.1 (25.0-35.0) pg MCHC 31.7 (31.0-37.0) g/dL RDW 12.8 (11.5-15.5) % Plt Count 269 (150-450) k/uL MPV 7.6 Neutrophils % 86 % Lymphocytes % 8 % Monocytes % 3 % Eosinophils % 1 % Basophils % 2 % Neutrophils # 9.6 H (1.3-7.7) k/uL Lymphocytes # 0.9 L (1.0-4.8) k/uL Monocytes # 0.3 (0-1.0) k/uL Eosinophils # 0.1 (0-0.7) k/uL Basophils # 0.2 (0-0.2) k/uL PT (9.0-12.0) sec INR (<1.2) APTT (22.0-30.0) sec Sodium (137-145) mmol/L Potassium (3.5-5.1) mmol/L Chloride (98-107) mmol/L Carbon Dioxide (22-30) mmol/L Anion Gap mmol/L BUN (7-17) mg/dL Creatinine (0.52-1.04) mg/dL Est GFR (CKD-EPI)AfAm (>60 ml/min/1.73 sqM) Est GFR (CKD-EPI)NonAf (>60 ml/min/1.73 sqM) Glucose (74-99) mg/dL POC Glucose (mg/dL) 171 H (70-110) mg/dL POC Glu Human Resources Operations Manager ID Mir Rush Plasma Lactic Acid Rick (0.7-2.0) mmol/L Calcium (8.4-10.2) mg/dL Total Bilirubin (0.2-1.3) mg/dL AST (14-36) U/L ALT (4-34) U/L Alkaline Phosphatase (38-126) U/L Total Protein (6.3-8.2) g/dL Albumin (3.5-5.0) g/dL Amylase (30-110) U/L Lipase (23-300) U/L Urine Color Colorless Urine Appearance Clear (Clear) Urine pH 8.0 (5.0-8.0) Ur Specific Electra 1.010 (1.001-1.035) Urine Protein 1+ H (Negative) Urine Glucose (UA) 4+ H (Negative) Urine Ketones Negative (Negative) Urine Blood Negative (Negative) Urine Nitrite Negative (Negative) Urine Bilirubin Negative (Negative) Urine Urobilinogen <2.0 (<2.0) mg/dL Ur Leukocyte Esterase Negative (Negative) Urine RBC 1 (0-5) /hpf Urine WBC 1 (0-5) /hpf Ur Squamous Epith Cells <1 (0-4) /hpf Coronavirus (PCR) (Not Detectd) 05/07/22 05/07/22 05/07/22 Range/Units 12:49 12:49 12:49 WBC (3.8-10.6) k/uL RBC (3.80-5.40) m/uL Hgb (11.4-16.0) gm/dL Hct (34.0-46.0) % MCV (80.0-100.0) fL MCH (25.0-35.0) pg MCHC (31.0-37.0) g/dL RDW (11.5-15.5) % Plt Count (150-450) k/uL MPV Neutrophils % % Lymphocytes % % Monocytes % % Eosinophils % % Basophils % % Neutrophils # (1.3-7.7) k/uL Lymphocytes # (1.0-4.8) k/uL Monocytes # (0-1.0) k/uL Eosinophils # (0-0.7) k/uL Basophils # (0-0.2) k/uL PT 10.7 (9.0-12.0) sec INR 1.0 (<1.2) APTT 23.3 (22.0-30.0) sec Sodium 138 (137-145) mmol/L Potassium 4.5 (3.5-5.1) mmol/L Chloride 96 L (98-107) mmol/L Carbon Dioxide 28 (22-30) mmol/L Anion Gap 14 mmol/L BUN 14 (7-17) mg/dL Creatinine 0.80 (0.52-1.04) mg/dL Est GFR (CKD-EPI)AfAm 81 (>60 ml/min/1.73 sqM) Est GFR (CKD-EPI)NonAf 71 (>60 ml/min/1.73 sqM) Glucose 176 H (74-99) mg/dL POC Glucose (mg/dL) (70-110) mg/dL POC Glu Human Resources Operations Manager ID Plasma Lactic Acid Rick 1.5 (0.7-2.0) mmol/L Calcium 9.4 (8.4-10.2) mg/dL Total Bilirubin 1.3 (0.2-1.3) mg/dL AST 40 H (14-36) U/L ALT 25 (4-34) U/L Alkaline Phosphatase 98 (38-126) U/L Total Protein 8.4 H (6.3-8.2) g/dL Albumin 5.1 H (3.5-5.0) g/dL Amylase 48 (30-110) U/L Lipase 64 (23-300) U/L Urine Color Urine Appearance (Clear) Urine pH (5.0-8.0) Ur Specific Electra (1.001-1.035) Urine Protein (Negative) Urine Glucose (UA) (Negative) Urine Ketones (Negative) Urine Blood (Negative) Urine Nitrite (Negative) Urine Bilirubin (Negative) Urine Urobilinogen (<2.0) mg/dL Ur Leukocyte Esterase (Negative) Urine RBC (0-5) /hpf Urine WBC (0-5) /hpf Ur Squamous Epith Cells (0-4) /hpf Coronavirus (PCR) (Not Detectd) 05/07/22 Range/Units 13:41 WBC (3.8-10.6) k/uL RBC (3.80-5.40) m/uL Hgb (11.4-16.0) gm/dL Hct (34.0-46.0) % MCV (80.0-100.0) fL MCH (25.0-35.0) pg MCHC (31.0-37.0) g/dL RDW (11.5-15.5) % Plt Count (150-450) k/uL MPV Neutrophils % % Lymphocytes % % Monocytes % % Eosinophils % % Basophils % % Neutrophils # (1.3-7.7) k/uL Lymphocytes # (1.0-4.8) k/uL Monocytes # (0-1.0) k/uL Eosinophils # (0-0.7) k/uL Basophils # (0-0.2) k/uL PT (9.0-12.0) sec INR (<1.2) APTT (22.0-30.0) sec Sodium (137-145) mmol/L Potassium (3.5-5.1) mmol/L Chloride (98-107) mmol/L Carbon Dioxide (22-30) mmol/L Anion Gap mmol/L BUN (7-17) mg/dL Creatinine (0.52-1.04) mg/dL Est GFR (CKD-EPI)AfAm (>60 ml/min/1.73 sqM) Est GFR (CKD-EPI)NonAf (>60 ml/min/1.73 sqM) Glucose (74-99) mg/dL POC Glucose (mg/dL) (70-110) mg/dL POC Glu Human Resources Operations Manager ID Plasma Lactic Acid Rick (0.7-2.0) mmol/L Calcium (8.4-10.2) mg/dL Total Bilirubin (0.2-1.3) mg/dL AST (14-36) U/L ALT (4-34) U/L Alkaline Phosphatase (38-126) U/L Total Protein (6.3-8.2) g/dL Albumin (3.5-5.0) g/dL Amylase (30-110) U/L Lipase (23-300) U/L Urine Color Urine Appearance (Clear) Urine pH (5.0-8.0) Ur Specific Electra (1.001-1.035) Urine Protein (Negative) Urine Glucose (UA) (Negative) Urine Ketones (Negative) Urine Blood (Negative) Urine Nitrite (Negative) Urine Bilirubin (Negative) Urine Urobilinogen (<2.0) mg/dL Ur Leukocyte Esterase (Negative) Urine RBC (0-5) /hpf Urine WBC (0-5) /hpf Ur Squamous Epith Cells (0-4) /hpf Coronavirus (PCR) Not Detected (Not Detectd) Disposition Clinical Impression: Sciatica, Strain of lumbar region Disposition: HOME SELF-CARE Condition: Fair Instructions (If sedation given, give patient instructions): Acute Low Back Pain (ED) Prescriptions: dexAMETHasone [Decadron] 6 mg PO DAILY #5 tablet HYDROcodone/APAP 5-325MG [Midway 5-325] 1 tab PO Q6HR PRN #12 tab PRN Reason: Pain Is patient prescribed a controlled substance at d/c from ED?: No Referrals: Anshul Montanez MD [Primary Care Provider] - 1-2 days Time of Disposition: 15:14
[2022-05-07] MEDS ORDERED: ONDANSETRON 4 MG/2 ML VIAL IVP STA (12:46)
[2022-05-07 12:53] LABS: Basophils # (A) 0.2 k/uL (0-0.2); Basophils % (A) 2 %; Eosinophils # (A) 0.1 k/uL (0-0.7); Eosinophils % (A) 1 %; HCT 50.7 % (34.0-46.0); HGB 16.1 gm/dL (11.4-16.0); Lymphocytes # (A) 0.9 k/uL (1.0-4.8); Lymphocytes % (A) 8 %; MCH 29.1 pg (25.0-35.0); MCHC 31.7 g/dL (31.0-37.0); MCV 91.9 fL (80.0-100.0); Mean Platelet Volume 7.6; Monocytes # (A) 0.3 k/uL (0-1.0); Monocytes % (A) 3 %; Neutrophils # (A) 9.6 k/uL (1.3-7.7); Neutrophils % (A) 86 %; Platelet Count 269 k/uL (150-450); RBC 5.52 m/uL (3.80-5.40); RDW 12.8 % (11.5-15.5); WBC 11.2 k/uL (3.8-10.6)
[2022-05-07 13:02] LABS: Partial Thromboplastin Time 23.3 sec (22.0-30.0); Prothrombin Time 10.7 sec (9.0-12.0)
[2022-05-07 13:09] LABS: Albumin 5.1 g/dL (3.5-5.0); Calcium 9.4 mg/dL (8.4-10.2); Total Bilirubin 1.3 mg/dL (0.2-1.3); Total Protein 8.4 g/dL (6.3-8.2)
[2022-05-07] MEDS ORDERED: HYDROmorphone 0.5 MG/0.5 ML SYRINGE IVP STA (13:23)
[2022-05-07 13:25] LABS: Potassium 4.5 mmol/L (3.5-5.1)
--- NOTE | 2022-05-07 14:24 | XR ---
EXAMINATION TYPE: XR chest 2V DATE OF EXAM: 05/07/2022 2:17 PM COMPARISON: Chest radiographs from, 11/09/2011 CT abdomen pelvis 05/07/2022, 12/19/2017. TECHNIQUE: XR chest 2V Frontal and lateral views of the chest. CLINICAL INDICATION:Female, 77 years old with history of charmaine; FINDINGS: Lungs/Pleura: There is no evidence of pleural effusion, focal consolidation, or pneumothorax. Pulmonary vascularity: Unremarkable. Heart/mediastinum: Cardiomediastinal silhouette is prominent in size. Atherosclerotic calcifications are seen in the aorta. Musculoskeletal: Chronic anterior wedge compression deformity of the T12 vertebral body with approxim ately 15 % height loss. Other findings: Surgical clip in the upper abdomen. IMPRESSION: No acute cardiopulmonary disease/process.
--- NOTE | 2022-05-07 14:24 | CT ---
EXAMINATION TYPE: CT abdomen pelvis w con CT DLP: 1154.6 mGycm, Automated exposure control for dose reduction was used. DATE OF EXAM: 05/07/2022 2:12 PM COMPARISON: CT abdomen pelvis most recent from 12/19/2017 CLINICAL INDICATION:Female, 77 years old with history of left flank pain; left flank pain, nausea TECHNIQUE: Axial CT of the abdomen and pelvis. Sagittal and coronal reformats were created on a [employer] workstation. Contrast used:100 mL of Isovue 300 with IV Contrast, Oral contrast used: without Oral Contrast FINDINGS: LOWER CHEST: The heart is mildly enlarged for size. ABDOMEN LIVER: Diffusely hypoattenuating parenchyma. GALLBLADDER AND BILE DUCTS: Gallbladder is surgically absent with mild intrahepatic and extra hepatic biliary dilatation likely physiologic and a postcholecystectomy change. No evidence of choledocholit hiasis. PANCREAS: Unremarkable. SPLEEN: Unremarkable. ADRENAL GLANDS: Unremarkable. KIDNEYS AND URETERS: No evidence of hydronephrosis or renal calculus. Bilateral hypodense renal cysts and probable subcentimeter renal cysts. PELVIS BLADDER: Unremarkable REPRODUCTIVE: The uterus is surgically absent. ABDOMEN & PELVIS STOMACH AND BOWEL: No evidence of bowel obstruction. There is a large stool burden throughout the col on. Scattered clonic diverticula are present. PERITONEUM: No evidence of pneumoperitoneum or free fluid. VASCULATURE: Moderate atherosclerotic calcifications are present throughout the abdominal aorta and i ts branches. No evidence of aortic aneurysm. MUSCULOSKELETAL: No acute osseous abnormalities. Mild disc degeneration changes are present throughou t the thoracolumbar spine. Scoliosis changes to the spine. LYMPH NODES: No gross evidence for lymphadenopathy. SOFT TISSUE/ABDOMINAL WALL: Ventral wall fat-containing hernias. IMPRESSION: 1. No evidence for acute abdominal process. 2. Colonic diverticulosis without evidence for acute diverticulitis. 3. Large stool burden throughout the colon. 4. Hepatic steatosis.
[2022-05-07] MEDS ORDERED: DEXAMETHASONE SOD PHOSPHATE 10 MG/ML 1 ML VIAL IV STA (14:34)
[2022-05-07 15:57] VITALS: BP 147/65; PULSE 65; RESP 16
== END 2022-05-07 16:06 | disposition home or self-care (01) ==
LOC: EC 10:52
DX: S39.012A Strain of muscle, fascia and tendon of lower back, initial encounter (principal); J45.909 Unspecified asthma, uncomplicated; E11.9 Type 2 diabetes mellitus without complications; K21.9 Gastro-esophageal reflux disease without esophagitis; E78.5 Hyperlipidemia, unspecified; I10 Essential (primary) hypertension; E07.9 Disorder of thyroid, unspecified; Z79.83 Long term (current) use of bisphosphonates; Z79.899 Other long term (current) drug therapy; Z20.822 Contact with and (suspected) exposure to COVID-19; Z87.891 Personal history of nicotine dependence; Z88.5 Allergy status to narcotic agent; X58.XXXA Exposure to other specified factors, initial encounter
CPT/HCPCS: 36415; 80053; 82150; 83605; 83690; 85025; 85610; 85730; 81001; 87635; 71046; 74177; 99284; 96374; 96375; 96361; J1100; J2405; J1885; J1170

== ENCOUNTER → 2022-05-09 | Outpatient (CLI) | payer MEDICARE | END | disposition home or self-care (01) | LOC: LABWHC1 11:45 | PROVIDERS: ATTEND Internal Medicine | DX: I20.8 Other forms of angina pectoris (principal) | CPT/HCPCS: 36415; 83880; 84484; 85379 ==

== ENCOUNTER → 2022-05-15 | Outpatient (CLI) | payer MEDICARE ==
--- NOTE | 2022-05-17 06:54 | MR ---
EXAMINATION TYPE: MR samy/lsapolinar wo con DATE OF EXAM: 05/15/2022 COMPARISON: Lumbar spine exam 10/02/2021 HISTORY: Back pain FINDINGS: Multiplanar and multiecho imaging of the thoracic and lumbar spine with no contrast. There is anterior wedging of T12 vertebra almost 20% that appears old. There is anterior spurring in the thoracic and lumbar spine. No acute fracture seen. No thoracic paraspinal mass. No evidence of th oracic focal bone destruction. There is hypertrophic facet arthropathy and ligament thickening with L 3-4 spinal stenosis. There is also mild relative stenosis at L2-3. There is moderate narrowing of the disc space at L4-5. There is mild narrowing also at L1-2 and L2-3 disc spaces. There are small poste rior disc bulging at L1-L2 3. IMPRESSION: Spondylotic changes. Mild relative spinal stenosis at L2-3 and L3-4. No compression fracture seen in the lumbar spine. There is an old mild T12 compression fracture. No focal bone destruction. Lumbar spine not significantly different than old exam.
== END | disposition home or self-care (01) ==
LOC: RADMRIMAIN 18:19
PROVIDERS: ATTEND Internal Medicine
DX: M47.816 Spondylosis without myelopathy or radiculopathy, lumbar region (principal); M51.26 Other intervertebral disc displacement, lumbar region; M48.061 Spinal stenosis, lumbar region without neurogenic claudication; M48.54XA Collapsed vertebra, not elsewhere classified, thoracic region, initial encounter for fracture
CPT/HCPCS: 72146; 72148

== ENCOUNTER → 2022-05-27 | Outpatient (CLI) | payer MEDICARE ==
[2022-05-27 14:50] VITALS: BP 128/66; PULSE 63; RESP 18; TEMP 97.9
--- NOTE | 2022-05-27 15:16 | P.PAINPG ---
PQRS Measure Charge Sheet Comment: HISTORY OF PRESENT ILLNESS: 77 yr old female w daughter at side as a referral from Dr Montanez presents today w severe and chronic LBP secondary to DDD, spondylosis, and facet arthropathy without myelopathy for evaluation. Pt states her pain level is currently at 3/10 in intensity, but escalates up to 5/10 constant, pressure in character w shooting down the BLEs. Pain is provoked with laying on her back and standing. Pain is alleviated with heat, ice, meds ([place], Tylenol), topicals, repositioning and rest. PMH: Asthma, Angina, Diabetes Mellitus, GERD, Hyperlipidemia, HTN, OA, Graves Disease PSH: Thyroid CA w resection, SKin CA w Resection, Appendectomy, Bladder Surgery, Breast Surgery, Section, Cholecystectomy, R Knee Replacement, BL Lumpectomy, R Cataract Resection SH: Former tobacco user, No ETOH use, No illicit drug use. FH: Sister- PE. All: Codeine MedSee list REVIEW OF ORGAN SYSTEMS: CONSTITUTIONAL: No fevers or chills. No recent weight loss. NEUROLOGICAL: + numbness and tingling along the distal extremities. No seizure disorders or headaches. MUSCULOSKELETAL: + pain PSYCHIATRIC: Denies current depression or suicidal thoughts. Physical Examinations : Constitutional : Cooperative , not in acute distress . Neurologic : Cranial nerve II to XII intact. No focal neurological deficits. Psychiatric : alert & oriented x 3. Matching mood & appropriate affect. Judgment & insight intact. Musculoskeletal : Cervical Spine Motor strength in the deltoid and biceps: Normal right side. Normal Left side Motor strength biceps and the wrist extensors: Normal right side . Normal left side Motor strength in the triceps muscle: Normal right side. Normal left side Deep tendon reflexes: Normal at the biceps. Normal at Brachioradialis. Normal at triceps Vertebral body tenderness to deep palpation over Cervical facet loading test: positive bilaterally Spurling test: positive bilaterally Neck distraction test: positive bilaterally Fermin sign: positive bilaterally Lumbar spine Motor strength lower extremities ,thigh and legs 5/5 Right side , 5/5 Left side Deep tendon reflexes : Normal Knee Jerk. Normal Ankle Jerk Vertebral body tenderness over L4 Lumbar facet Loading Test: positive Right / positive Left Range of motion of the lumbar spine Flexion 30 degrees, extension 10 degrees Straight Leg Raise test: Left/ Right positive at degree Keenan test: positive right / positive left. Severe tenderness over the Sacroiliac joint on the Right / Left sides Gaenslen test: positive bilaterally Seated flexion test: positive bilaterally. Sacral spine : Severe tenderness over the Sacroiliac joint: right side / left side Range of motion: Flexion of the lumbar spine <60 degrees Range of motion: Extension of the lumbar spine <20 degrees Gaenslen's Test positive Royce's Test positive Keenan test: positive right side / left side Thigh Thrust Test Sacral Thrust Test Imaging: MRI without contrast of the lumbar spine from 10/02/21 reviewed Assessment/ Plan : Lumbar DDD, lumbar spondylosis Recommendation of TJ L4-L5. May need a series of injections, up to 3 within a 6 mo period, for optimal pain relief. Risks, benefits of procedure discussed and patient verbalized understanding. Admits to aspirin or anti- coagulant use or medical history of diabetes. Protocol for discontinuation/ continuation of medications oliva procedure discussed. All questions answered. I have spent greater than 30 minutes on patient care today. Dr Mcgarry was available by phone for the evaluation of this patient. The time was used to review the medical records including relevant urine studies and Prescription history (MAPs), review of the available imaging, evaluation and examination of the patient, coordination of care with the medical staff and if applicable referring physicians, as well as creation of the medical record PQRS Narrative: Smoking Status Former smoker Home Medications: Ambulatory Orders Aspirin [Adult Low Dose Aspirin EC] 81 mg PO HS 03/15/16 Atorvastatin [Lipitor] 40 mg PO HS 03/15/16 Insulin Glargine,Hum.rec.anlog [Toujeo Solostar] 24 units SQ HS 03/15/16 Levothyroxine Sodium [Synthroid] 125 mcg PO AC-BRKFST 03/15/16 Metoprolol Succinate [Toprol XL] 50 mg PO HS 03/15/16 PARoxetine HCL [Paxil] 20 mg PO DAILY 03/15/16 allopurinoL [Zyloprim] 100 mg PO HS 03/15/16 amLODIPine BESYLATE [Norvasc] 5 mg PO HS 03/15/16 metFORMIN HCL [Glucophage] 1,000 mg PO BID 03/15/16 Losartan Potassium [Cozaar] 100 mg PO DAILY 10/26/17 Albuterol Sulfate [Proair Hfa] 2 puff INHALATION RT-QID PRN 05/07/22 Baclofen 5 mg PO DAILY PRN 05/07/22 Calcium Carbonate [Tums] 1,000 mg PO TID PRN 05/07/22 Empagliflozin [Jardiance] 10 mg PO DIRECTED 05/07/22 Famotidine [Pepcid] 20 mg PO BID PRN 05/07/22 Furosemide [Lasix] 40 mg PO DAILY 05/07/22 HYDROcodone/APAP 5-325MG [[place] 5-325] 1 tab PO Q6HR PRN #12 tab 05/07/22 Mirabegron [Myrbetriq] 25 mg PO DIRECTED 05/07/22 dexAMETHasone [Decadron] 6 mg PO DAILY #5 tablet 05/07/22 Controlled Substance Measures - Controlled Substance Measures Is patient prescribed a controlled substance at discharge?: No
== END ==
LOC: PNWHC3 13:26
PROVIDERS: ATTEND Specialist
DX: M51.36 Other intervertebral disc degeneration, lumbar region (principal); M48.062 Spinal stenosis, lumbar region with neurogenic claudication; G35 Multiple sclerosis; Z88.5 Allergy status to narcotic agent; Z87.891 Personal history of nicotine dependence; E11.9 Type 2 diabetes mellitus without complications; E78.5 Hyperlipidemia, unspecified; J45.909 Unspecified asthma, uncomplicated; I10 Essential (primary) hypertension; M19.90 Unspecified osteoarthritis, unspecified site
CPT/HCPCS: 99211

== ENCOUNTER → 2022-05-29 | Outpatient (CLI) | payer MEDICARE ==
--- NOTE | 2022-05-29 16:53 | CA ---
Transthoracic Echo Report Name: Cailin Parada Age: 77 Gender: F : 1945 Exam Date: 05/29/2022 12:58 Exam Location: [place] Echo Ht (in): 58 Wt (lb): 180 Ordering Physician: Anshul Montanez MD Attending/Referring Phys: [employer] Director Betsy Ellis RDCS Procedure CPT: Indications: I65.23 Occlusion/stenosis Cardiac Hx: Technical Quality: Fair Contrast 1: Total Dose (mL): Contrast 2: Total Dose (mL): MEASUREMENTS (Male / Female) Normal Values 2D ECHO LV Diastolic Diameter PLAX 3.6 cm 4.2 - 5.9 / 3.9 - 5.3 cm LV Systolic Diameter PLAX 2.3 cm IVS Diastolic Thickness 1.4 cm 0.6 - 1.0 / 0.6 - 0.9 cm LVPW Diastolic Thickness 1.3 cm 0.6 - 1.0 / 0.6 - 0.9 cm LV Relative Wall Thickness 0.8 RV Internal Dim ED PLAX 3.3 cm LA Systolic Diameter LX 3.5 cm 3.0 - 4.0 / 2.7 - 3.8 cm LA Volume 41.1 cm??? 18 - 58 / 22 - 52 cm??? M-MODE Aortic Root Diameter MM 3.0 cm MV E Point Septal Separation 0.4 cm AV Cusp Separation MM 2.0 cm DOPPLER AV Peak Velocity 119.8 cm/s AV Peak Gradient 5.7 mmHg MV Area PHT 2.6 cm??? Mitral E Point Velocity 53.5 cm/s Mitral A Point Velocity 97.1 cm/s Mitral E to A Ratio 0.6 MV Deceleration Time 286.6 ms MV E' Velocity 4.2 cm/s Mitral E to MV E' Ratio 12.7 FINDINGS Left Ventricle Left ventricular ejection fraction is estimated at 60-65 %. Moderately increased septal wall thickness. Moderately increased posterior wall thickness. Left ventricular cavity size normal. Right Ventricle Mild right ventricular dilatation. Unable to estimate the right ventricular systolic pressure no TR jet Right Atrium Normal right atrial size. Left Atrium Normal left atrial size. No evidence for an atrial septal defect. Mitral Valve Mitral valve thickened. Trace to mild mitral regurgitation. Aortic Valve Trileaflet aortic valve. No aortic valve stenosis or regurgitation. Tricuspid Valve Structurally normal tricuspid valve. Pulmonic Valve Structurally normal pulmonic valve. Pericardium Normal pericardium. No pericardial effusion. Aorta Normal size aortic root and proximal ascending aorta. CONCLUSIONS Normal LV systolic function Previewed by: Dr. Jose Carlos Erazo MD (Electronically Signed) Final Date: 29 May 2022 16:52
== END | disposition home or self-care (01) ==
LOC: RADECHMAIN 12:55
PROVIDERS: ATTEND Internal Medicine
DX: I34.1 Nonrheumatic mitral (valve) prolapse (principal)
CPT/HCPCS: 93306

== ENCOUNTER → 2022-06-07 | Outpatient (CLI) | payer MEDICARE ==
[~2022-06-07] MED LIST: REGADENOSON 0.4 MG/5 ML SYRINGE IV ONE
--- NOTE | 2022-06-07 08:05 | US ---
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 HTN controlled with meds. No h x of tia. TECHNIQUE: Carotid duplex ultrasound examination. Indirect Doppler criteria was utilized. FINDINGS: EXAM MEASUREMENTS: RIGHT: Peak Systolic Velocity (PSV) cm/sec ----- Right CCA: 60.3 ----- Right ICA: 90.5 ----- Right ECA: 98.2 ICA/CCA ratio: 1.5 RIGHT: End Diastole cm/sec ----- Right CCA: 9.8 ----- Right ICA: 18.0 ----- Right ECA: 0.0 LEFT: Peak Systolic Velocity (PSV) cm/sec ----- Left CCA: 93.1 ----- Left ICA: 81.2 ----- Left ECA: 117.7 ICA/CCA ratio: 0.9 LEFT: End Diastole cm/sec ----- Left CCA: 12.8 ----- Left ICA: 21.9 ----- Left ECA: 0.0 VERTEBRALS (direction of flow): Right Vertebral: Antegrade Left Vertebral: Antegrade Rhythm: Normal BUSINESS MACHINE MECHANIC NOTES: Plaque seen. Wall thickening visualized bilaterally. No elevated velocities or s ignificant stenosis. IMPRESSION: No evidence for hemodynamically significant stenosis. Criteria for Assigning % of Stenosis / Diameter reduction (Estimation based on the indirect measurements of the internal carotid artery velocities (ICA PSV). 1. Normal (no stenosis)=ICA PSV < 125 cm/s: ratio < 2.0: ICA EDV<40 cm/s. 2. Less than 50% stenosis=ICA PSV < 125 cm/s: ratio < 2.0: ICA EDV<40 cm/s. 3. 50 to 69% stenosis=ICA PSV of 125 to 230 cm/s: ration 2.0 ? 4.0: ICA EDV 40-100 cm/s. 4. Greater than 70% stenosis to near occlusion= ICA PSV > 230 cm/s: ratio > 4.0: ICA EDV > 100 cm/s. 5. Near occlusion= ICA PSV velocities may be low or undetectable: variable ratio and ICA EDV. 6. Total occlusion=unable to detect flow.
--- NOTE | 2022-06-07 12:45 | NM ---
EXAMINATION TYPE: NM stress lexiscan cardiolite DATE OF EXAM: 06/07/2022 COMPARISON: NONE HISTORY: I20.8 effort angina TECHNIQUE: After the intravenous administration of 10.1 mCi Tc 99m Sestamibi - Cardiolite resting SP ECT images acquired 45 minutes post injection. The patient received 0.4mg Lexiscan, 24.4 mCi Tc 99m Sestamibi - Stress images obtained [address] injection FINDINGS: Review of stress and rest SPECT images demonstrates small area of decreased perfusion involving the a nteroapical wall on stress images. Stress-induced ischemia is not excluded. Gated analysis shows norm al wall motion with an estimated left ventricular ejection fraction of 63 %. IMPRESSION: small area of decreased perfusion involving the anteroapical wall on stress images. Stress-induced is chemia is not excluded.
--- NOTE | 2022-06-12 14:23 | CA ---
Lexiscan Nuclear Stress Test Report Name: Cailin Parada Exam Date: 06/07/2022 10:27 Exam Location: [place] Stress Ht (in): 58 Wt (lb): 175 BSA: 1.72 Ordering Phys: ALESSANDRO RODRIGUES Referring Phys: Lisseth,, Technologist: Gregory Figueroa Age: 77 Gender: F : 1945 Procedure CPT: Indications: ICD-10 Codes: Patient History: DIFFICULTY IN BREATHING, HTN, DIABETIC, ELEVATED CHOLESTEROL LEVELS, FORMER SMOKER, PRIOR CARDIAC CATHETERIZATION, ASTHMA Medications: METFORMIN, PAROXETINE, METOPROLOL, ALLOPURINOL, ATORVASTATIN, AMLODIPINE, ASA, LEVOTHYROXINE, TOUJEO INSULIN, PROAIR, PEPCID Meds past 24 hrs: Pretest Chest Pain: STRESS TEST Lexiscan Protocol Exercise Duration (min:sec): 02:[address] Depressions (mm): Angina Score: [place] Score: Resting HR (bpm): 66 Peak HR (bpm): 79 Resting BP (mmHg): 148 / 77 Peak BP (mmHg): 149 / 67 MPHR: 141 Target HR: 120 % MPHR: 56 METS: 1.0 Total Dose: Peak Dose: Atropine: Double Product: 65059 BP Response: Stress Termination: Stress Symptoms: Stress Summary: ECG ANALYSIS Resting ECG: Stress ECG: CONCLUSIONS None diagnostic electrocardiogram stress testing Please follow-up on the Cardiolite portion Dr. Arslan Sumner MD (Electronically Signed) Final Date: 07 June 2022 18:07
== END | disposition home or self-care (01) ==
LOC: RADUSWWP 07:29
PROVIDERS: ATTEND Internal Medicine
DX: I65.23 Occlusion and stenosis of bilateral carotid arteries (principal); I20.8 Other forms of angina pectoris; S22.080A Wedge compression fracture of T11-T12 vertebra, initial encounter for closed fracture; M47.816 Spondylosis without myelopathy or radiculopathy, lumbar region
CPT/HCPCS: 93017; 93880; 78452; A9500; J2785

== ENCOUNTER → 2022-06-27 | Day surgery (SDC) | payer MEDICARE ==
[2022-06-26 12:17] VITALS: BMI 37.6
[~2022-06-27] MED LIST changes: +IOPAMIDOL M200 10 ML VIAL ONE; +IV FLUID CONTINUATION 1,000 ML IV ONE; +LACTATED RINGERS 1,000 ML IV ONE; +LACTATED RINGERS 1,000 ML IV SCH; +MIDAZOLAM 2 MG/2 ML VIAL ONE; -REGADENOSON 0.4 MG/5 ML SYRINGE IV ONE; +fentaNYL (PF) 50 MCG/ML 2 ML AMP ONE; +methylPREDNISolone ACETATE 40 MG/ML 1 ML VIAL ONE
[2022-06-27 11:55] VITALS: TEMP 98.4
[2022-06-27 12:16] LABS: Glucose,Whole Blood 105 mg/dL (70-110)
--- NOTE | 2022-06-27 12:54 | P.PCN ---
Date of Procedure: 06/27/22 Description of Procedure: Procedure: 1. L4-L5 Epidural steroid injection under fluoroscopic guidance # 1/3 , 2. Lumbar epidurogram PREOPERATIVE DIAGNOSIS: Lumbar degenerative disc disease, and Lumbar radiculopathy. POSTOPERATIVE DIAGNOSIS: Lumbar degenerative disc disease, and Lumbar radiculopathy. SURGEON: Lucita Flores ANESTHESIA: Local with 1% lidocaine, and IV sedation: Versed 1 mg , and fentanyl 50 g Sedation supervision start time: 12 43 Sedation supervision ended time: 1250 EBL: None. Specimen removed: None Fluoroscopic image: saved to electronic medical records PROCEDURE INDICATION: The patient had history of Lumbar degenerative disc disease and Lumbar radiculopathy. Failed to conservative therapy. Presented for epidural steroid injection. PROCEDURE DESCRIPTION: The patient was seen and identified in the preoperative area. Risks, benefits, complications, and alternatives were discussed with the patient. The patient agreed to proceed with the procedure and signed the consent. IV was started, and vital signs were stable. Patient was taken to the procedure area, and time out was completed. The patient was placed in the prone position on procedure table and a pillow was placed under the abdomen to reduce lumbar lordosis. The lumbosacral area was prepped and draped in the usual sterile fashion. Critical pause was taken. Vital signs were closely monitored during the procedure. Using anterior-posterior fluoroscopy, the L4-L5 interlaminar space was identified, and skin and deeper tissues were localized with 1% lidocaine. Using anterior-posterior fluoroscopy, lateral fluoroscopy, and eyii-ru-wgnxbrarhu technique, a 20 gauge 3.5 Tuohy epidural needle entered the epidural space. After negative aspiration of CSF and blood with no paresthesias, 1 ml of [id number] contrast dye was injected and an excellent epidurogram was seen. Again after negative aspiration of CSF and blood with no paresthesias, 10 mL of block solution was injected into the epidural space. Block solution contained 40 mg of Depo-Medrol, and 9 mL of preservative-free normal saline. Needle was withdrawn intact, skin was cleansed, and bandages were applied. COMPLICATIONS: None. DISPOSITION / PLANS: The patient was placed in a supine position and transferred to the recovery area in a stable condition for observation. Patient was discharged from the recovery room after meeting discharge criteria. Home discharge instructions given to the patient by the staff. The patient was reexamined prior to discharge. The patient will schedule a follow up in the clinic in 4 weeks.
--- NOTE | 2022-06-27 13:03 | FL ---
EXAMINATION TYPE: FL guided pain mgmt statistic DATE OF EXAM: 06/27/2022 CLINICAL HISTORY: Low back pain. TECHNIQUE: Fluoroscopy. COMPARISON: None. FINDINGS: Fluoroscopic guidance was provided during pain relief procedure performed by Dr. Flores . A total of 4 seconds of fluoroscopic time was utilized during the procedure and 3 spot images are a cquired. Images acquired shows needle localization at L5 level from posterior approach. IMPRESSION: As Above.
[2022-06-27 13:10] VITALS: RESP 16
[2022-06-27 13:49] VITALS: BP 129/72; PULSE 68
== END ==
LOC: ORPAIN 11:36
DX: M51.16 Intervertebral disc disorders with radiculopathy, lumbar region (principal)
CPT/HCPCS: 62323; J2250; J1030; J3010; Q9966

== ENCOUNTER 2022-07-05 05:47 | Day surgery (SDC) | payer MEDICARE ==
[2022-07-05] MEDS ORDERED: ALPRAZolam 0.25 MG TAB PO PRN (06:06)
[2022-07-05] MEDS ORDERED: HEPARIN SODIUM,PORCINE 10,000 UNIT in SODIUM CHLORIDE 0.9% 1,000 ML IRRIGATION PRN (06:06)
[2022-07-05] MEDS ORDERED: ASPIRIN 325 MG TAB PO STA (06:06)
[2022-07-05] MEDS ORDERED: ALPRAZolam 0.5 MG TAB PO PRN (06:06)
[2022-07-05] MEDS ORDERED: NITROGLYCERIN SL TABS 0.4 MG TAB SUBLINGUAL PRN (06:06)
[2022-07-05] MEDS ORDERED: ATORVASTATIN 80 MG TAB PO STA (06:06)
[2022-07-05] MEDS ORDERED: SODIUM CHLORIDE 0.9% 1,000 ML in EMPTY BAG 1 BAG IV ONE (06:06)
[2022-07-05] MEDS ORDERED: HEPARIN SODIUM,PORCINE 2,500 UNIT in SODIUM CHLORIDE 0.9% 250 ML IRRIGATION PRN (06:06)
[2022-07-05] MEDS ORDERED: SODIUM CHLORIDE 0.9% 1,000 ML IV ONE (06:16)
[2022-07-05] MEDS ORDERED: INSULIN ASPART (NovoLOG) 100 UNIT/ML VIAL SQ SCH (06:27)
[2022-07-05] MEDS ORDERED: INSULIN ASPART (NovoLOG) 100 UNIT/ML VIAL SQ ONE (06:27)
[2022-07-05 06:28] LABS: Glucose,Whole Blood 251 mg/dL (70-110)
[2022-07-05 06:33] VITALS: RESP 16; TEMP 98
[2022-07-05] MEDS ORDERED: VERAPAMIL 2.5 MG/ML 2 ML AMP ONE (07:14)
[2022-07-05] MEDS ORDERED: fentaNYL (PF) 50 MCG/ML 2 ML AMP ONE (07:34)
[2022-07-05] MEDS ORDERED: HEPARIN SODIUM 1,000 UN/ML (10ML VL) ONE (07:34)
[2022-07-05] MEDS ORDERED: fentaNYL (PF) 50 MCG/1 ML VIAL IV ONE (07:42)
[2022-07-05] MEDS ORDERED: LIDOCAINE 1% INJ 10MG/ML (30 ML VIAL-PF) SQ ONE (07:46)
[2022-07-05] MEDS ORDERED: VERAPAMIL SYRINGE (5 MG/10 ML) INTRAARTER ONE (07:47)
[2022-07-05] MEDS ORDERED: HEPARIN SODIUM 1,000 UN/ML (10ML VL) IV ONE (08:01)
[2022-07-05] MEDS ORDERED: IOPAMIDOL-370 125ML BTL INJ ONE (08:05)
[2022-07-05] MEDS ORDERED: RX INFO: IV CONTRAST WAS GIVEN 1 EACH MISC MISCELLANE PRN (08:14)
[2022-07-05] MEDS ORDERED: SODIUM CHLORIDE 0.9% 1,000 ML IV SCH (08:15)
--- NOTE | 2022-07-05 08:21 | P.CARDCATH ---
Date of Procedure: 07/05/22 Description of Procedure: Cardiac Catheterization: The patient is a 77-year-old female with known history of CAD, hypertension, hyperlipidemia, diabetes mellitus who has been complaining of dyspnea and left arm discomfort. She had an abnormal MPI. Recommendations were made regarding cardiac catheterization, the risks and the complications were discussed with the patient who is in full understanding and agreement. Procedure Description: Patient was brought to slab inspector in fasting semi-sedated state after receiving Fentanyl and Benadryl achieiving moderate conscious sedated state. Using Xylocaine Anesthesia and Seldinger technique, a 6-[place]aiwanese sheath was introduced in the right radial artery . Subsequently, selective coronary angiography was performed using a 5-[place]ese 3.5 bend Michael catheter. Multiple views of the coronary artery including hemiaxial views were obtained. The right Michael catheter was used to cross the aortic valve and LVEDP was calculated. Following that, catheter and sheath were removed. Hemostasis was obtained with deployment of TR band . There was no immediate complication. Patient was returned to room in stable condition. Of note, the patient received a total of 4000 units of intravenous heparin as well as intra-arterial verapamil. Findings: Fluoroscopy: Calcifications of the coronary arteries was noted Left main: This is a large size vessel, bifurcating into LAD and left circumflex, left main has no high-grade stenosis LAD: This is a large size vessel, reaching to the apex with a wrap around the apex segment, it gives rise to a proximal large diagonal branch, the second branch is small in caliber. 20% plaque is noted at the takeoff of the second diagonal branch, the rest of the vessel has no high-grade stenosis Left circumflex: This is a large nondominant vessel giving rise to a large obtuse marginal branch in the mid segment, the left circumflex and its branches have no evidence of high-grade stenosis. RCA: This is a dominant vessel moderate caliber bifurcating into PDA and PLV, the right coronary artery has 10-20% plaque in the mid segment, the rest of the vessel has no high-grade stenosis Left Ventriculogram: Not performed Hemodynamics: There was no gradient across the aortic valve, LVEDP was 18-20 mmHg Conclusion: 1. Calcified coronary arteries 2. Mild disease in the LAD and RCA 3. Right dominance 4. Elevated LVEDP Recommendations: I have recommended to continue present medical therapy with aggressive coronary risks modifications, depending on her progress further recommendations will be made. The findings and the recommendations were discussed with the patient and the family and they were in full understanding and agreement. Duration of sedation is 19 minutes.
[2022-07-05] MEDS ORDERED: ACETAMINOPHEN TAB 500 MG TAB PO ONE (08:53)
[2022-07-05] MEDS ORDERED: NON FORMULARY DRUG (Empagliflozin [Jardiance] 10 MG Tablet) PO SCH (09:00)
[2022-07-05] MEDS ORDERED: NON FORMULARY DRUG (Losartan Potassium [Cozaar] 100 MG Tablet) PO SCH (09:00)
[2022-07-05] MEDS ORDERED: PARoxetine 20 MG TAB PO SCH (09:00)
[2022-07-05] MEDS ORDERED: NON FORMULARY DRUG (Mirabegron [Myrbetriq] 25 MG Tab.Er.24h) PO SCH (09:00)
[2022-07-05] MEDS ORDERED: METOPROLOL SUCCINATE (ER) 50 MG TAB.ER.24H PO SCH (09:00)
[2022-07-05 09:09] LABS: Glucose,Whole Blood 85 mg/dL (70-110)
[2022-07-05] MEDS ORDERED: KETOROLAC 15 MG/ML 1 ML VIAL IVP STA (11:13)
[2022-07-05] MEDS ORDERED: KETOROLAC 15 MG/ML 1 ML VIAL ONE (11:15)
[2022-07-05 14:27] VITALS: BP 165/72; PULSE 62
[2022-07-05] MEDS ORDERED: ATORVASTATIN 40 MG TAB PO SCH (21:00)
[2022-07-05] MEDS ORDERED: amLODIPine 5 MG TAB PO SCH (21:00)
[2022-07-05] MEDS ORDERED: NON FORMULARY DRUG (Insulin Glargine,Hum.Rec.Anlog [Toujeo Solostar] 300 UNIT/ML Insuln.Pe SQ SCH (21:00)
[2022-07-05] MEDS ORDERED: NON FORMULARY DRUG (Aspirin [Adult Low Dose Aspirin Ec] 81 MG Tablet.Dr) PO SCH (21:00)
[2022-07-06] MEDS ORDERED: LEVOTHYROXINE 125 MCG TAB PO SCH (07:30)
== END 2022-07-05 12:46 | disposition home or self-care (01) ==
LOC: CATHCVL 05:47
PROVIDERS: ATTEND Internal Medicine Interventional Cardiology
DX: I25.10 Atherosclerotic heart disease of native coronary artery without angina pectoris (principal); I10 Essential (primary) hypertension; E78.5 Hyperlipidemia, unspecified; E11.9 Type 2 diabetes mellitus without complications
CPT/HCPCS: 93458; J2001; J1644; J1885; Q9967; J3010

== ENCOUNTER → 2022-07-15 | Outpatient (CLI) | payer MEDICARE ==
[2022-07-15 14:03] VITALS: BP 133/62; PULSE 64; RESP 18
--- NOTE | 2022-07-15 15:12 | P.PAINPG ---
PQRS Measure Charge Sheet Comment: A 77 yr old female with a history of severe and chronic low back pain secondary to lumbar degenerative disc diseases and lumbar spondylosis with facet arthropathy without myelopathy presents today for evaluation s/p TJ L4-L5 #1 . Pt states she received 50% pain relief x 2 wks s/p procedure. Pain level is currently at 5/10 in intensity, constant, localied in the R lower lumbar spine, dull/ achy in character w shooting towards the LLE. Pain is provoked by bending/ twisting/lifting. Pain is alleviated with PT in the past, chiropractic treatments in the past, home exercises are too painful, alternating heat & ice, ([place], Tylenol), topicals w little relier, inactivity. Interventional pain procedures completed include TJ L4-L5 x1. Patient is currently on [place], Tylenol OTC Patient denies any side effects of the medication(s), denies excessive drowsiness or sleepiness, denies suicidal ideation and reports that the current pain medication is helping to control the pain and improve activities of daily living. Patient denies any motor or sensory deficits. Patient denies any fever or night sweats, denies any change in the bowel movements or urination. Physical Examination: -Constitutional: Cooperative. Not in acute distress . - Neurologic: Cranial nerve II to XII intact. No focal neurological deficits. - Psychatric: Alert & oriented x 3. Matching mood & appropriate affect. Judgment and insight intact. - Musculoskeletal: Cervical spine: Muscle bulk/ tone/ strength in the bilateral upper extremities normal Vertebral body tenderness to palpation over Spurling test positive Distraction test positive Facet loading test positive Thoracic spine Muscle bulk / tone/ strength in the bilateral paraspinal muscles normal Vertebral body tender to palpation over Facet loading test positive Lumbar spine: Motor bulk/ tone/ strength lower extremities , thigh and legs : 5/5 Deep tendon reflexes : Normal Knee Jerk. Normal Ankle Jerk . Vertebral body tenderness to palpation over L4 Lumbar Facet Loading Test positive Straight Leg Raise: positive at 30 degrees right side/ left side Gaenslen's Test positive Sacral spine : Severe tenderness over the Sacroiliac joint: right side / left side Range of motion: Flexion of the lumbar spine <60 degrees Range of motion: Extension of the lumbar spine <20 degrees Gaenslen's Test positive Royce's Test positive Keenan test: positive right side / left side Thigh Thrust Test Sacral Thrust Test Assessment and plan: Chronic low back pain secondary to lumbar degenerative disc disease , lumbar spondylosis with facet arthropathy without myelopathy Recommendation of TJ L4-L5, #2. May need a series of injections, up to 3 within a 6 mo period, for optimal pain relief. Risks, benefits of procedure discussed and pt verbalized understanding. Admits to anticoagulant use or medical history of diabetes. Protocol for discontinuation / continuation of medications oliva procedure discussed. Short supply of [place] 5/325mg #18 NR. Use, side effects, adverse reactions and storage discussed and pt acknowledges u nderstanding. All patient questions answered I have spent less than 30 minutes on patient care today. Dr Mcgarry was available by phone for the evaluation of this patient. The time was used to review the medical records including relevant urine studies and Prescription history (MAPs), review of the available imaging, evaluation and examination of the patient, coordination of care with the medical staff and if applicable referring physicians, as well as creation of the medical record - Pain Location Right Lower Back Non-Pharmacological Interventions: Chiropractic Treatment, Heat, Home Exercise, Ice, Inactivity, Physical Therapy, Position/Reposition, Stretching Pharmacological Interventions: Epidural, PRN Medication, Topical Medication PQRS Narrative: Smoking Status Former smoker Hx Alcohol Use (MH) No Home Medications: Ambulatory Orders Aspirin [Adult Low Dose Aspirin EC] 81 mg PO HS 03/15/16 Atorvastatin [Lipitor] 40 mg PO HS 03/15/16 Insulin Glargine,Hum.rec.anlog [Toujeo Solostar] 30 units SQ HS 03/15/16 Levothyroxine Sodium [Synthroid] 125 mcg PO AC-BRKFST 03/15/16 Metoprolol Succinate [Toprol XL] 50 mg PO DAILY 03/15/16 PARoxetine HCL [Paxil] 20 mg PO DAILY 03/15/16 allopurinoL [Zyloprim] 100 mg PO DAILY 03/15/16 amLODIPine BESYLATE [Norvasc] 5 mg PO HS 03/15/16 metFORMIN HCL [Glucophage] 1,000 mg PO BID 03/15/16 Losartan Potassium [Cozaar] 100 mg PO DAILY 10/26/17 Empagliflozin [Jardiance] 10 mg PO DAILY 05/07/22 Mirabegron [Myrbetriq] 25 mg PO DAILY 05/07/22 HYDROcodone/APAP 5-325MG [[place] 5-325] 1 tab PO Q4HR PRN 3 Days #18 tab 07/15/22 Controlled Substance Measures - Controlled Substance Measures Is patient prescribed a controlled substance at discharge?: Yes When asked, does pt state using other controlled substances?: No If prescribed controlled substance>3 days was MAPS reviewed?: Prescribed <3 Days If Rx opioid, was Start Talking consent form obtained?: Yes If opioid is for acute pain is fill amount 7 days or less?: Yes Was information provided regarding opioid addiction?: Yes
== END ==
LOC: PNWHC3 13:34
PROVIDERS: ATTEND Specialist
DX: M47.816 Spondylosis without myelopathy or radiculopathy, lumbar region (principal); M51.36 Other intervertebral disc degeneration, lumbar region; G89.29 Other chronic pain; Z79.01 Long term (current) use of anticoagulants; E11.9 Type 2 diabetes mellitus without complications; Z88.5 Allergy status to narcotic agent; Z87.891 Personal history of nicotine dependence; Z79.84 Long term (current) use of oral hypoglycemic drugs
CPT/HCPCS: 99211

== ENCOUNTER 2022-08-27 09:42 | Day surgery (SDC) | payer MEDICARE ==
[2022-08-27 10:26] VITALS: RESP 20; TEMP 98.7
[2022-08-27 10:34] LABS: Glucose,Whole Blood 85 mg/dL (70-110)
[2022-08-27] MEDS ORDERED: LACTATED RINGERS 1,000 ML IV ONE (10:35)
[2022-08-27] MEDS ORDERED: IOPAMIDOL M200 10 ML VIAL ONE (10:53)
[2022-08-27] MEDS ORDERED: MIDAZOLAM 2 MG/2 ML VIAL ONE (10:53)
[2022-08-27] MEDS ORDERED: methylPREDNISolone ACETATE 40 MG/ML 1 ML VIAL ONE (10:53)
[2022-08-27] MEDS ORDERED: fentaNYL (PF) 50 MCG/ML 2 ML AMP ONE (10:53)
--- NOTE | 2022-08-27 11:02 | P.PCN ---
Date of Procedure: 08/27/22 Procedure(s) Performed: PREOPERATIVE DIAGNOSIS: 1- Lumbar Degenerative Disc Diseases 2-Lumbar spondylosis with Facet arthropathy without myelopathy. 3-lumbar radiculopathy POSTOPERATIVE DIAGNOSIS: Same as preop diagnosis. PROCEDURE 1. Lumbar epidural steroid injection under fluoroscopic guidance at the L4-5 level. (Fluoroscopy imaging was available in radiology department) 2. Lumbar epidurogram. ANESTHESIA: moderate sedation with intravenous Versed 1 mg ,and fentanyle 50 Mcg Sedation start time : 1054 Sedation end time : 11:00 EBL: Minimal PROCEDURE INDICATION: The patient with low back pain and radiculitis symptoms unresponsive to conservative treatment. Fluoroscopy was used to optimize visualization of the needle placement and to maximize safety. PROCEDURE DESCRIPTION / TECHNIQUE: The patient was seen and identified in the preoperative area. Risks, benefits, complications including but not limited to infections ,bleeding ,allergic reaction to the medications ,nerve damage and not complete pain releife , and alternatives were discussed with the patient. The patient agreed to proceed with the procedure and signed the consent. IV was started, and vital signs were stable. Patient was taken to the OR and time out was completed. The patient was placed in the prone position on procedure table and a pillow was placed under the abdomen to reduce lumbar lordosis. The lumbosacral area was prepped and draped in the usual sterile fashion.ere closely monitored during the procedure. Conscious sedation was used during the procedure to decrease patients anxiety. Vital signs was monitered during the entire procedure. Using anterior-posterior fluoroscopy, the L4-5 interlaminar space was identified and the skin over this site was marked and then infiltrated with 1% lidocaine subcutaneously. Subsequently, a 20-gauge Tuohy epidural needle was inserted and advanced toward the epidural space using the ``Loss of resistance technique and guided by AP and lateral fluoroscopy. The correct needle position in the epidural space was verified with the injection of 2 mL of the water soluble contrast dye Isovue 200 contrast and observing an excellent epidurogram with the epidural spread of the dye, after negative aspiration for blood and CSF and in the absence of paresthesias. Again after negative aspiration, a 6 ml mixture containing 40 mg of Depo-medrol ( Preservetive Free ), and 2 ml of preservative free Normal Saline, and 2 ml of preservative free lidocaine 1% solution was injected and a washout of epidurogram was seen. Needle was withdrawn intact, skin was cleansed, and bandages were applied. COMPLICATIONS: None DISPOSITION / PLANS: The patient was placed in a supine position and transferred to the recovery area in a stable condition for observation. There was no evidenc e of lower extremity motor or sensory deficit after the procedure. Patient was discharged from the recovery room after meeting discharge criteria. Home discharge instructions were given to the patient by the staff. The patient was reexamined prior to discharge. The patient will schedule a follow up in the clinic in 2-4 weeks.
[2022-08-27] MEDS ORDERED: IV FLUID CONTINUATION 700 ML IV ONE (11:05)
--- NOTE | 2022-08-27 11:26 | FL ---
Intraoperative/procedural fluoroscopic services were provided for lumbar epidural injection. Total fl uoroscopy time is 1 second with a total of 2 submitted images to PACS. Please see the operative note for further details.
[2022-08-27 11:27] VITALS: BP 136/56; PULSE 57
== END 2022-08-27 11:49 | disposition home or self-care (01) ==
LOC: ORPAIN 09:42
PROVIDERS: ATTEND Specialist
DX: M51.16 Intervertebral disc disorders with radiculopathy, lumbar region (principal); M47.26 Other spondylosis with radiculopathy, lumbar region
CPT/HCPCS: 62323; J2250; J1030; J3010; Q9966

== ENCOUNTER → 2022-09-18 | Outpatient (CLI) | payer MEDICARE ==
[2022-09-18 13:50] VITALS: BP 160/71; PULSE 67; RESP 18; TEMP 98.1
--- NOTE | 2022-09-18 14:35 | P.PAINPG ---
PQRS Measure Charge Sheet Comment: A 77 yr old male with a history of severe and chronic low back pain secondary to lumbar DDD and spondylosis with facet arthropathy without myelopathy presents today for evaluation s/p TJ L4-L5 #2. Pt states she experienced 100 % pain relief x 4 days s/p procedure. Pain level is provoked at 8 /10 in intensity, constant, localized in the lumbar spine, achy in character w shooting towards . Pain is provoked by walking/ standing for periods of 10 min or more. Pain is alleviated with heat, ice, medications ([place], Tylenol), topicals, repositioning and rest. Interventional pain procedures completed include TJ L4-L5 x2 Patient is currently on [place] 5/325mg (ineffective) Patient denies any side effects of the medication(s), denies excessive drowsiness or sleepiness, denies suicidal ideation and reports that the current pain medication is helping to control the pain and improve activities of daily living. Patient denies any motor or sensory deficits. Patient denies any fever or night sweats, denies any change in the bowel movements or urination. Physical Examination: -Constitutional: Cooperative. Not in acute distress . - Neurologic: Cranial nerve II to XII intact. No focal neurological deficits. - Psychatric: Alert & oriented x 3. Matching mood & appropriate affect. Judgment and insight intact. - Musculoskeletal: Cervical spine: Muscle bulk/ tone/ strength in the bilateral upper extremities normal Vertebral body tenderness to palpation over Spurling test positive Distraction test positive Facet loading test positive Thoracic spine Muscle bulk / tone/ strength in the bilateral paraspinal muscles normal Vertebral body tender to palpation over Facet loading test positive Lumbar spine: Motor bulk/ tone/ strength lower extremities , thigh and legs : 5/5 Deep tendon reflexes : Normal Knee Jerk. Normal Ankle Jerk . Vertebral body tenderness to palpation over Lumbar Facet Loading Test positive Straight Leg Raise: positive at 30 degrees right side/ left side Gaenslen's Test positive Sacral spine : Severe tenderness over the Sacroiliac joint: right side / left side Range of motion: Flexion of the lumbar spine <60 degrees Range of motion: Extension of the lumbar spine <20 degrees Gaenslen's Test positive Keenan test: positive right side / left side Thigh Thrust Test Sacral Thrust Test Assessment and plan: Chronic low back pain secondary to lumbar degenerative disc disease, spondylosis with facet arthropathy without myelopathy Disinterested in signing up for a procedure until she reads up about it. The patient was counseled about risk of opioid use, psychological risk associated with opioids and was orally counseled to not overuse , divert or sell medications. Pt is to store medication in a safe location. The patient is counseled against driving while using narcotic medications and also not to use alcohol or any illicit recreational drugs. Patient verbalized understanding that the lack of compliance will result in failure to renew narcotic prescription(s) as well as possible discharge from the clinic Diagnoses, prognosis and treatment options including but not limited to physical therapy, surgical interventions, interventional therapies and medication management including narcotics and adjuvant medication were discussed. All patient questions answered MAPS reviewed and it was appropriate. Prescription refill for [place] 7.5/325mg #18 NR. May return to the clinic on an as needed basis. I have spent less than 30 minutes on patient care today. Dr Mcgarry was available by phone for the evaluation of this patient. The time was used to review the medical records including relevant urine studies and Prescription history (MAPs), review of the available imaging, evaluation and examination of the patient, coordination of care with the medical staff and if applicable referring physicians, as well as creation of the medical record - Pain Location Bilateral Lower Back Non-Pharmacological Interventions: Elevation, Heat, Ice, Inactivity, Sitting Pharmacological Interventions: Epidural, PRN Medication, Scheduled Medication, Topical Medication PQRS Narrative: Smoking Status Former smoker Hx Alcohol Use (MH) No Home Medications: Ambulatory Orders Aspirin [Adult Low Dose Aspirin EC] 81 mg PO HS 03/15/16 Atorvastatin [Lipitor] 40 mg PO HS 03/15/16 Insulin Glargine,Hum.rec.anlog [Toujeo Solostar] 24 units SQ HS 03/15/16 Levothyroxine Sodium [Synthroid] 125 mcg PO AC-BRKFST 03/15/16 Metoprolol Succinate [Toprol XL] 50 mg PO HS 03/15/16 PARoxetine HCL [Paxil] 20 mg PO [facility] 03/15/16 allopurinoL [Zyloprim] 100 mg PO HS 03/15/16 amLODIPine BESYLATE [Norvasc] 5 mg PO HS 03/15/16 metFORMIN HCL [Glucophage] 1,000 mg PO BID 03/15/16 Losartan Potassium [Cozaar] 100 mg PO QA 10/26/17 Empagliflozin [Jardiance] 10 mg PO QAM 05/07/22 Mirabegron [Myrbetriq] 25 mg PO DAILY 05/07/22 HYDROcodone/APAP 5-325MG [Norfolk 5-325] 1 tab PO Q4HR PRN 3 Days #18 tab 07/15/22 Controlled Substance Measures - Controlled Substance Measures Is patient prescribed a controlled substance at discharge?: Yes When asked, does pt state using other controlled substances?: No If prescribed controlled substance>3 days was MAPS reviewed?: Prescribed <3 Days If Rx opioid, was Start Talking consent form obtained?: Yes If opioid is for acute pain is fill amount 7 days or less?: Yes Was information provided regarding opioid addiction?: Yes
== END ==
LOC: PNWHC3 13:18
PROVIDERS: ATTEND Specialist
DX: M47.816 Spondylosis without myelopathy or radiculopathy, lumbar region (principal); M51.36 Other intervertebral disc degeneration, lumbar region; G89.29 Other chronic pain; Z87.891 Personal history of nicotine dependence; Z88.5 Allergy status to narcotic agent
CPT/HCPCS: 99211

== ENCOUNTER → 2023-01-31 | Outpatient (CLI) | payer MEDICARE ==
--- NOTE | 2023-02-07 09:53 | US ---
EXAMINATION TYPE: US arterial LE single level DATE OF EXAM: 01/31/2023 3:30 PM CLINICAL INDICATION: Female, 77 years old with history of I73.9 PERIPHERAL VASCULAR DISEASE, UNSPECIF IED; History of: Smoker: yes, previous 40+ yrs ago Hypertension: Takes medication Diabetic: Yes Hyperlipidemia: Yes, on meds TIA/CVA: No Previous Vascular Surgery: No CAD: No MT: Vascular Ulcers: No Claudication: No Gangrene: No Doppler Waveforms: Right: Multiphasic Left: Multiphasic Right Brachial Pressure: 162 Left Brachial Pressure: 173 Ankle-Brachial Indices: Right: 1.12 Left: 1.02 Toe Brachial Indices: Right: 0.94 Left: 0.91 IMPRESSION: Normal study.
== END | disposition home or self-care (01) ==
LOC: RADUSWWP 14:25
PROVIDERS: ATTEND Internal Medicine
DX: I73.9 Peripheral vascular disease, unspecified (principal)
CPT/HCPCS: 93922

== ENCOUNTER → 2023-07-14 | Outpatient (CLI) | payer MEDICARE ==
[2023-07-14 13:42] VITALS: BP 188/83; PULSE 64; RESP 16
--- NOTE | 2023-07-14 13:50 | P.PAINPG ---
PQRS Measure Charge Sheet Comment: A 77 yr old wheelchair bound female w at side with a history of severe and chronic low back pain secondary to lumbar DDD and spondylosis with facet arthropathy without myelopathy presents today for evaluation . Pain level is provoked at 8 /10 in intensity, constant, localized in the lumbar spine, pr edominantly axial, stabbing in character w shooting towards the L groin and thigh. Pain is provoked by walking/ standing for periods of 10 min or more. Pain is alleviated with heat, ice, medications ([place], Tylenol), topicals, use of a wheelchair for ambulatory assistance, repositioning and rest. Oswestry axial pain score of 38. Interventional pain procedures completed include TJ L4-L5 x2, BL MBB L3-L5 x1 Patient is currently on L[place] 5/325mg (ineffective) Patient denies any side effects of the medication(s), denies excessive drowsiness or sleepiness, denies suicidal ideation and reports that the current pain medication is helping to control the pain and improve activities of daily living. Patient denies any motor or sensory deficits. Patient denies any fever or night sweats, denies any change in the bowel movements or urination. Physical Examination: -Constitutional: Cooperative. Not in acute distress . - Neurologic: Cranial nerve II to XII intact. No focal neurological deficits. - Psychatric: Alert & oriented x 3. Matching mood & appropriate affect. Judgment and insight intact. - Musculoskeletal: Cervical spine: Muscle bulk/ tone/ strength in the bilateral upper extremities normal Vertebral body tenderness to palpation over Spurling test positive Distraction test positive Facet loading test positive Thoracic spine Muscle bulk / tone/ strength in the bilateral paraspinal muscles normal Vertebral body tender to palpation over Facet loading test positive Lumbar spine: Motor bulk/ tone/ strength lower extremities , thigh and legs : 5/5 Deep tendon reflexes : Normal Knee Jerk. Normal Ankle Jerk . Vertebral body tenderness to palpation over L4 Lumbar Facet Loading Test positive Straight Leg Raise: positive at 30 degrees right side/ left side Gaenslen's Test positive Sacral spine : Severe tenderness over the Sacroiliac joint: right side / left side Range of motion: Flexion of the lumbar spine <60 degrees Range of motion: Extension of the lumbar spine <20 degrees Gaenslen's Test positive on L Keenan test: positive right side / left side Thigh Thrust Test Sacral Thrust Test positive on L Assessment and plan: Chronic LBP secondary to lumbar DDD, spondylosis with facet arthropathy without myelopathy, L Sacroiliitis Recommendation of PT x 6 wks Dx M46.1 Risks, benefits discussed and pt verbalized understanding. Protocol for discontinuation/ continuation of medications surrounding procedure discussed. Diclofenac gel 3% apply to AA BID for pain Disp 1 tube w 1 RF. Use, side effects, adverse reactions and safe storage discussed. Pt verbalized understanding. All patient questions answered MAPS reviewed and it was appropriate. I have spent less than 30 minutes on patient care today. Dr Mcgarry was a vailable by phone for the evaluation of this patient. The time was used to review the medical records including relevant urine studies and Prescription history (MAPs), review of the available imaging, evaluation and examination of the patient, coordination of care with the medical staff and if applicable referring physicians, as well as creation of the medical record PQRS Narrative: Smoking Status Former smoker Hx Alcohol Use (MH) No Home Medications: Ambulatory Orders Aspirin [Adult Low Dose Aspirin EC] 81 mg PO HS 03/15/16 Atorvastatin [Lipitor] 40 mg PO HS 03/15/16 Insulin Glargine,Hum.rec.anlog [Toujeo Solostar] 24 units SQ HS 03/15/16 Levothyroxine Sodium [Synthroid] 125 mcg PO AC-BRKFST 03/15/16 Metoprolol Succinate [Toprol XL] 50 mg PO HS 03/15/16 PARoxetine HCL [Paxil] 20 mg PO QAM 03/15/16 allopurinoL [Zyloprim] 100 mg PO HS 03/15/16 amLODIPine BESYLATE [Norvasc] 5 mg PO HS 03/15/16 metFORMIN HCL [Glucophage] 1,000 mg PO BID 03/15/16 Losartan Potassium [Cozaar] 100 mg PO QAM 10/26/17 Empagliflozin [Jardiance] 10 mg PO QAM 05/07/22 Mirabegron [Myrbetriq] 25 mg PO DAILY 05/07/22 HYDROcodone/APAP 7.5-325MG [[place] 7.5-325] 1 tab PO Q4H PRN 3 Days #18 tab 09/18/22 Controlled Substance Measures - Controlled Substance Measures Is patient prescribed a controlled substance at discharge?: No
== END ==
LOC: PNWHC3 12:41
PROVIDERS: ATTEND Specialist
DX: M51.36 Other intervertebral disc degeneration, lumbar region (principal); M47.816 Spondylosis without myelopathy or radiculopathy, lumbar region; G89.29 Other chronic pain; Z87.891 Personal history of nicotine dependence; Z79.82 Long term (current) use of aspirin; Z88.5 Allergy status to narcotic agent
CPT/HCPCS: 99211

== ENCOUNTER → 2023-11-03 | Outpatient (CLI) | payer MEDICARE ==
--- NOTE | 2023-11-03 16:18 | MM ---
Reason for Exam: Screening (asymptomatic). Last screening mammogram was performed 12 month(s) ago. Patient History: Menarche at age 9. First Full-Term at age 17. Hysterectomy at age 46. Postmenopausal. Other cancer. Patient used Estrogen for 8 years. Excisional Biopsy on the Right side. Excisional Biopsy on the Right side. Excisional Biopsy on the Left side. 11/13/2012, Benign Core Biopsy on the right side. Paternal aunt had breast cancer, age 70. Maternal aunt had breast cancer, age 83. Risk Values: Mireya 5 year model risk: 2.0%. NCI Lifetime model risk: 3.0%. Prior Study Comparison: 05/18/2020 Bilateral Screening Mammogram, [facility]. 10/16/2021 Bilateral Screening Mammogram, [facility]. 10/29/2022 Bilateral MG 3D screening mammo w/cad, [facility]. Tissue Density: The breast tissue is heterogeneously dense. This may lower the sensitivity of mammography. Findings: Analyzed By CAD. The pattern is symmetrical. Multiple benign-appearing spherical rounded calcifications are present. Core marker is within the right breast. Heterogenous calcifications are within the medial left breast. Findings are stable from comparison. No suspicious groups of microcalcifications, spiculated or lobular masses, architectural distortion or other secondary signs of malignancy are mammographically apparent. Overall Assessment: Benign, BI-RAD 2 Management: Screening Mammogram of both breasts in 1 year. A negative mammogram report should not preclude additional follow up of suspicious palpable abnormalities. Patient should continue monthly self breast exam. A clinical breast exam by your physician is recommended on an annual basis and results should be correlated with mammographic findings. Electronically signed and approved by: Giorgio Goodwin D.O. Radiologis
--- NOTE | 2023-11-03 21:36 | US ---
EXAMINATION TYPE: US carotid duplex BILAT DATE OF EXAM: 11/03/2023 COMPARISON: NONE CLINICAL INDICATION: Female, 78 years old with history of I65.23 CAROTID STENOSIS; TECHNIQUE: Carotid duplex ultrasound examination. Indirect Doppler criteria was utilized. FINDINGS: EXAM MEASUREMENTS: RIGHT: Peak Systolic Velocity (PSV) cm/sec ----- Right CCA: 73.5 ----- Right ICA: 99.3 ----- Right ECA: 124 ICA/CCA ratio: 1.35 RIGHT: End Diastole cm/sec ----- Right CCA: 8.6 ----- Right ICA: 14.3 ----- Right ECA: 0.0 LEFT: Peak Systolic Velocity (PSV) cm/sec ----- Left CCA: 70.2 ----- Left ICA: 82.2 ----- Left ECA: 139 ICA/CCA ratio: 1.17 LEFT: End Diastole cm/sec ----- Left CCA: 7.8 ----- Left ICA: 14.9 ----- Left ECA: 0.0 VERTEBRALS (direction of flow): Right Vertebral: Antegrade Left Vertebral: Antegrade Rhythm: Normal CAN FEEDER NOTES: Mild plaque bilateral bifurcations. No evidence of significant stenosis within the internal carotid arteries. IMPRESSION: 1. Mild atheromatous plaquing without significant flow-limiting stenosis 2. Some mild or borderline narrowing may be within the bilateral external carotid arteries. Criteria for Assigning % of Stenosis / Diameter reduction (Estimation based on the indirect measurements of the internal carotid artery velocities (ICA PSV). 1. Normal (no stenosis)=ICA PSV < 125 cm/s: ratio < 2.0: ICA EDV<40 cm/s. 2. Less than 50% stenosis=ICA PSV < 125 cm/s: ratio < 2.0: ICA EDV<40 cm/s. 3. 50 to 69% stenosis=ICA PSV of 125 to 230 cm/s: ration 2.0 ? 4.0: ICA EDV 40-100 cm/s. 4. Greater than 70% stenosis to near occlusion= ICA PSV > 230 cm/s: ratio > 4.0: ICA EDV > 100 cm/s. 5. Near occlusion= ICA PSV velocities may be low or undetectable: variable ratio and ICA EDV. 6. Total occlusion=unable to detect flow.
--- NOTE | 2023-11-04 08:26 | CA ---
Transthoracic Echo Report Name: Cailin Parada Age: 78 Gender: F : 1945 Exam Date: 11/03/2023 14:53 Exam Location: [facility] Ht (in): 60 Wt (lb): 180 Ordering Physician: Anshul Montanez MD Attending/Referring Phys: Anshul Montanez MD Classification Clerk ClaraRene RDCS Procedure CPT: Indications: I50.32 CHRONIC DIASTOLIC (CONGESTIVE I65.23 Z12.31 Cardiac Hx: Technical Quality: Contrast 1: Total Dose (mL): Contrast 2: Total Dose (mL): MEASUREMENTS (Male / Female) Normal Values 2D ECHO LV Diastolic Diameter PLAX 4.2 cm 4.2 - 5.9 / 3.9 - 5.3 cm LV Systolic Diameter PLAX 2.7 cm IVS Diastolic Thickness 1.2 cm 0.6 - 1.0 / 0.6 - 0.9 cm LVPW Diastolic Thickness 0.9 cm 0.6 - 1.0 / 0.6 - 0.9 cm LV Relative Wall Thickness 0.5 LVOT Diameter 2.3 cm Aortic Root Diameter 3.3 cm LA Systolic Diameter LX 4.2 cm 3.0 - 4.0 / 2.7 - 3.8 cm LV Diastolic Volume MOD BP 36.9 cm??? 67 - 155 / 56 - 104 cm??? LV Systolic Volume MOD BP 8.5 cm??? 22 - 58 / 19 - 49 cm??? LV Ejection Fraction MOD BP 77.1 % >= 55 % LV Cardiac Index MOD BP 1032.1 cm???/min???m??? LV Diastolic Volume MOD 4C 45.2 cm??? LV Systolic Volume MOD 4C 7.6 cm??? LV Ejection Fraction MOD 4C 83.1 % LV Cardiac Index MOD 4C 1364.7 cm???/min???m??? LV Diastolic Length 4C 6.4 cm LV Systolic Length 4C 4.9 cm LV Diastolic Volume MOD 2C 29.3 cm??? LV Systolic Volume MOD 2C 10.0 cm??? LV Ejection Fraction MOD 2C 65.9 % LV Cardiac Index MOD 2C 700.2 cm???/min???m??? LV Diastolic Length 2C 5.8 cm LV Systolic Length 2C 4.6 cm DOPPLER AV Peak Velocity 102.5 cm/s AV Peak Gradient 4.2 mmHg AV Mean Velocity 72.4 cm/s AV Mean Gradient 2.4 mmHg AV Velocity Time Integral 24.7 cm LVOT Peak Velocity 87.0 cm/s LVOT Peak Gradient 3.0 mmHg LVOT Velocity Time Integral 21.3 cm LVOT Stroke Volume 91.2 cm??? LVOT Stroke Volume Index 51.1 ml/m??? LVOT Cardiac Index 3312.2 cm???/min???m??? AV Area Cont Eq vti 3.7 cm??? AV Area Cont Eq pk 3.6 cm??? Mitral E Point Velocity 65.0 cm/s Mitral A Point Velocity 117.5 cm/s Mitral E to A Ratio 0.6 MV Deceleration Time 275.0 ms MV E' Velocity 9.6 cm/s Mitral E to MV E' Ratio 6.8 TR Peak Velocity 263.8 cm/s TR Peak Gradient 27.8 mmHg PV Peak Velocity 82.4 cm/s PV Peak Gradient 2.7 mmHg FINDINGS Left Ventricle Mildly increased septal wall thickness. Left ventricular ejection fraction is estimated at 55-60%. Normal Left ventricular size, wall thickness, systolic function with no obvious regional wall motion abnormalities. Normal Left ventricular diastolic filling pattern. Right Ventricle Normal right ventricular size and function. Right Atrium Normal right atrial size. Left Atrium Mildly increased left atrial diameter. Mitral Valve No mitral regurgitation. Aortic Valve No aortic regurgitation. Tricuspid Valve Mild tricuspid regurgitation. Pulmonic Valve No pulmonic regurgitation. Pericardium No pericardial effusion. Aorta Normal size aortic root and proximal ascending aorta. CONCLUSIONS Normal LV function Mildly dilated left atrium Previewed by: Dr. Jose Carlos Erazo MD (Electronically Signed) Final Date: 04 November 2023 08:25
== END | disposition home or self-care (01) ==
LOC: RADMAMWWP 13:40
PROVIDERS: ATTEND Internal Medicine
DX: Z12.31 Encounter for screening mammogram for malignant neoplasm of breast (principal); I50.32 Chronic diastolic (congestive) heart failure; I65.23 Occlusion and stenosis of bilateral carotid arteries; Z78.0 Asymptomatic menopausal state; Z80.3 Family history of malignant neoplasm of breast
CPT/HCPCS: 77063; 77067; 93306; 93880

== ENCOUNTER → 2024-01-13 | Outpatient (CLI) | payer MEDICARE ==
--- NOTE | 2024-01-13 16:13 | BD ---
EXAMINATION TYPE: Axial Bone Density DATE OF EXAM: 01/13/2024 CLINICAL HISTORY: 78 years old Female. ICD-10 CODE: S22.080A WEDGE COMPRESSION FRACTURE OF T11-T12 V ER Height: 58" Weight: 180lbs FRAX RISK QUESTIONS: Alcohol (3 or more units per day): No Family History (Parent hip fracture): No Glucocorticoids (More than 3mos): No (Ex: prednisone, prednisolone, methylprednisolone, dexamethasone, and hydrocortisone). History of Fracture in Adulthood: Yes Secondary Osteoporosis: 1. Type 1 Diabetes: No 2. Hyperthyroidism: No 3. Menopause before 45: No 4. Malnutrition: No 5. Chronic liver disease: No Rheumatoid Arthritis: No Current Tobacco Use: No RISK FACTORS HISTORY OF: Hip Fracture (Right/Left): No Spine Fracture: No History of Wrist Fracture: No Surgery to Spine/Hip(right/left)/Wrist (right/left): No MEDICATIONS: Thyroid Medications: Yes Which medication: Levothyroxine How Long: Since 1987, several years Osteoporosis Medications: No EXAM MEASUREMENTS: Bone mineral densitometry was performed using the Pollenizer System. Bone mineral density as measured about the Lumbar spine is: ----- L1-L4(G/cm2): 1.400 T Score Values are as follows: ----- L1: 0.2 ----- L2: 0.3 ----- L3: 2.0 ----- L4: 4.0 ----- L1-L4: 1.8 Z Score Values are as follows: ----- L1: 1.5 ----- L2: 1.6 ----- L3: 3.3 ----- L4: 5.3 ----- L1-L4: 3.1 Bone mineral density has: increased 1.7% since study of: 01/09/2022 Bone mineral density about the R hip (g/cm2): 1.008 Bone mineral density about the L hip (g/cm2): 1.031 T Score values are as follows: -----R Neck: -0.4 -----L Neck: -1.1 -----R Total: 0.0 -----L Total: 0.2 Z Score values are as follows: -----R Neck: 1.4 -----L Neck: 0.7 -----R Total: 1.6 -----L Total: 1.8 Bone mineral density has: increased 3.3% since study of: 01/09/2022 FRAX%s: The graph provided illustrates a 15.9% chance for a major osteoporotic fx and a 2.8% chance f or the hips probability for fx in 10 years time. IMPRESSION: Osteopenia (T Score between -2.5 and -1). There is slightly increased risk of fracture and the patient may be considered for treatment. Re-Screen 2-5 years. NOTE: T-SCORE=SD OF THE YOUNG ADULT MEAN.
== END | disposition home or self-care (01) ==
LOC: RADBDWWP 10:51
PROVIDERS: ATTEND Internal Medicine
DX: S22.080A Wedge compression fracture of T11-T12 vertebra, initial encounter for closed fracture (principal); M85.852 Other specified disorders of bone density and structure, left thigh
CPT/HCPCS: 77080

== ENCOUNTER → 2024-07-21 | Outpatient (CLI) | payer MEDICARE ==
--- NOTE | 2024-07-21 20:06 | MR ---
EXAMINATION TYPE: MR shoulder LT wo con DATE OF EXAM: 07/21/2024 COMPARISON: None HISTORY: Lt arm pain TECHNIQUE: Multiplanar, multisequence imaging of the left shoulder is performed without contrast. FINDINGS: There is mild osteoarthritic change of the AC joint and glenohumeral joint. There are no joint effusi ons. There is no subacromial or subdeltoid bursitis. There is rim rent tear at the supraspinatus. There is a questionable small tear along the inferior erazo rface of the infraspinatus as well. There is no retraction of the musculotendinous junctions. There is partial tear of the subscapularis tendon without retraction. There is a tear of the anterior inferior cartilaginous labrum. The superior labrum is intact. The biceps tendon is normal in signal intensity and position within the bicipital groove the biceps a nchor is intact. IMPRESSION: 1. Multiple rotator cuff tears without retraction. 2. Mild osteoarthritic change of the AC joint and glenohumeral joint. 3. Tear of the anterior-inferior cartilaginous labrum. 4. No subacromial or subdeltoid bursitis [facility], , 07/21/2024 8:03 PM
== END | disposition home or self-care (01) ==
LOC: RADMRIMAIN 08:59
PROVIDERS: ATTEND Orthopaedic Surgery
DX: M19.012 Primary osteoarthritis, left shoulder (principal); M75.102 Unspecified rotator cuff tear or rupture of left shoulder, not specified as traumatic

== ENCOUNTER → 2024-08-30 | Outpatient (CLI) | payer MEDICARE ==
--- NOTE | 2024-08-30 14:27 | XR ---
EXAMINATION TYPE: XR chest 2V DATE OF EXAM: 08/30/2024 2:05 PM COMPARISON: 05/07/2022 CLINICAL INDICATION: Female, 79 years old with history of R05.1 ACUTE COUGH, , TECHNIQUE: Frontal and lateral views FINDINGS: Heart upper limits of normal in size. Hazy densities related to large patient body habitus. Cholecyst ectomy clips. No kody consolidation or pleural effusion. IMPRESSION: Limitations due to body habitus. No definite acute process. [facility], , 08/30/2024 2:24 PM
== END | disposition home or self-care (01) ==
LOC: RADXRMAIN 13:44
PROVIDERS: ATTEND Internal Medicine
DX: R05.1 Acute cough (principal)
CPT/HCPCS: 71046

== ENCOUNTER → 2024-09-14 | Outpatient (CLI) | payer MEDICARE ==
--- NOTE | 2024-09-14 15:07 | XR ---
EXAMINATION TYPE: XR chest 2V DATE OF EXAM: 09/14/2024 3:02 PM COMPARISON: Chest x-ray August 30, 2024 CLINICAL INDICATION: Female, 79 years old with history of J06.9, TECHNIQUE: Frontal and lateral views of the chest are obtained. FINDINGS: There is no focal air space opacity, pleural effusion, or pneumothorax seen. The cardiac silhouette size is stable and within normal limits. The osseous structures are intact. IMPRESSION: No acute cardiopulmonary process. [facility], , 09/14/2024 3:05 PM
== END | disposition home or self-care (01) ==
LOC: RADXRMAIN 14:24
PROVIDERS: ATTEND Internal Medicine
DX: J06.9 Acute upper respiratory infection, unspecified (principal)
CPT/HCPCS: 71046

== ENCOUNTER → 2024-11-29 | Outpatient (CLI) | payer MEDICARE ==
--- NOTE | 2024-11-29 11:39 | FL ---
EXAMINATION TYPE: FL barium swallow DATE OF EXAM: 11/29/2024 COMPARISON: None CLINICAL INDICATION: Female, 79 years old with history of R13.19 OTHER DYSPHAGIA; PHH, TECHNIQUE: A double contrast esophagram is performed utilizing air and barium. A total of 46 second s of fluoroscopic time was utilized during procedure and 31 images obtained. Total dose area product (DAP) in uGy*m?, mGy*cm? (or similar) : 17.74. FINDINGS: Mild posterior impression upon the esophagus secondary to hypertrophic spurring of the cervical spine . Slight mucosal irregularity along the anterior margin the esophagus at the level there are tertiary contractions of esophagus but no evidence of obstruction or intraluminal filling defect. A trace of gastroesophageal reflux. Surgical clip in the abdomen. IMPRESSION: 1. No evidence of obstruction or intraluminal filling defect. 2. Mild tertiary contractions of the esophagus. The patient did have occasional difficulty initiating the swallowing mechanism which could be evaluated with modified barium swallow. 3. Posterior impression of the upper cervical esophagus at the level C3-C5 due to spurring from the c ervical spine. 4. Slight mucosal irregularity along the anterior margin of the upper cervical esophagus at the level of C4. Recommend direct visualization. [facility], , 11/29/2024 11:37 AM
== END | disposition home or self-care (01) ==
LOC: RADFLMAIN 10:19
PROVIDERS: ATTEND Internal Medicine
DX: K22.9 Disease of esophagus, unspecified (principal); R13.19 Other dysphagia
CPT/HCPCS: 74220

== ENCOUNTER → 2024-12-14 | Outpatient (CLI) | payer MEDICARE ==
--- NOTE | 2024-12-14 13:11 | FL ---
EXAMINATION TYPE: FL barium swallow w video DATE OF EXAM: 12/14/2024 CLINICAL HISTORY: 79-year-old female K21.9 GASTRO REFLUX DISEASE WO ESOPHAGITIS, patient with episode s of difficulty breathing with cold liquids and cold fruit. TECHNIQUE: Deglutition study is performed utilizing thin liquid barium, barium thick pudding, and ba rium coated cracker. COMPARISON: None. Total fluoroscopy time 46 seconds. Total images: 22 Total DAP: 50 mGycm2. FINDINGS: Mild anterior endplate spondylosis within the mid and lower cervical spine. The oral and pharyngeal phases show satisfactory initiation and propagation with all modalities teste d. Normal mastication is seen with solid modalities tested. There is no evidence of penetration or aspiration with any modality tested. No significant pharyngeal residue was appreciated. IMPRESSION: Normal deglutition study. Please refer to speech therapist notes for further details if necessary. [facility], , 12/14/2024 1:09 PM
== END | disposition home or self-care (01) ==
LOC: RADFLMAIN 11:56
PROVIDERS: ATTEND Internal Medicine
DX: K21.9 Gastro-esophageal reflux disease without esophagitis (principal)
CPT/HCPCS: 74230

== ENCOUNTER → 2025-02-15 | Outpatient (CLI) | payer MEDICARE | END | disposition home or self-care (01) | LOC: LABWHC1 10:55 | PROVIDERS: ATTEND Internal Medicine | DX: A69.20 Lyme disease, unspecified (principal) | CPT/HCPCS: 36415; 86618 ==

== ENCOUNTER → 2025-03-28 | Outpatient (CLI) | payer MEDICARE ==
[2025-03-29 14:14] LABS: Lyme IgG/IgM 3.150
== END | disposition home or self-care (01) ==
LOC: LABWHC1 14:29
PROVIDERS: ATTEND Internal Medicine
DX: A69.20 Lyme disease, unspecified (principal)
CPT/HCPCS: 36415; 86618